=== PATIENT | female | born 1955 | race Asian ===

== ENCOUNTER 2017-01-30 07:05 | Emergency (ER) | payer SELFPAY ==
[~2017-01-30] VITALS: Ht 167.6 cm; Wt 99.5 kg
[~2017-01-30 07:05] MED LIST: AMLO5TAB66 PO; GLYB5TAB8 PO; METF500T4 PO
[2017-01-30] MEDS ORDERED: ATOR40TA28 PO (07:15)
[2017-01-30] MEDS ORDERED: BENA20 PO (07:15)
[2017-01-30] MEDS ORDERED: ASPI-556 PO (07:15)
[2017-01-30] MEDS ORDERED: GLIP5 PO (07:15)
[2017-01-30] MEDS ORDERED: METO50 PO (07:15)
[2017-01-30 07:41] LABS: GLUCOSE,POINT OF CARE 274 MG/DL (70-110)
[2017-01-30] MEDS ORDERED: SODIUM CHLORIDE 0.9% 1,000 ML IV ONE (08:00)
[2017-01-30] MEDS ORDERED: KETOROLAC TROMETHAMINE 30 MG/ML VIAL IVP ONE (08:00)
[2017-01-30 08:17] LABS: BASOPHILS # (AUTO) 0.09 K/uL (0.00-0.20); BASOPHILS % (AUTO) 1.2 % (0.0-2.0); EOSINOPHILS # (AUTO) 0.21 K/uL (0.00-0.70); EOSINOPHILS % (AUTO) 2.75 % (1.0-6.0); HEMATOCRIT 41.1 % (36-46); HEMOGLOBIN 14.2 g/dL (12.0-16.0); LYMPHOCYTES # (AUTO) 1.2 K/uL (1.0-4.8); MEAN CORPUSCULAR HEMOGLOBIN 29.1 pg (26.0-34.0); MEAN CORPUSCULAR HGB CONC 34.5 G/dL (31.0-37.0); MEAN CORPUSCULAR VOLUME 84 fL (80-100); MONOCYTES # (AUTO) 0.6 K/uL (0.1-1.0); MONOCYTES % (AUTO) 7.3 % (2.0-9.0); NEUTROPHILS # (AUTO) 5.5 K/uL (1.8-7.7); NEUTROPHILS % (AUTO) 72.8 % (40.0-70.0); PLATELET COUNT (AUTO) 245 K/uL (150-450); RED BLOOD CELL COUNT(AUTO) 4.87 MIL/uL (4.00-5.20); RED CELL DISTRIBUTION WIDTH 12.6 % (11.5-14.5); WHITE BLOOD COUNT (AUTO) 7.6 K/uL (4.5-11.0)
[2017-01-30 08:20] LABS: CALCIUM, TOTAL 9.8 mg/dL (8.8-10.5); CREATININE 1.16 mg/dL (0.60-1.30); POTASSIUM 4.7 mmol/L (3.5-5.1)
[2017-01-30 08:27] LABS: ALBUMIN 3.1 g/dL (3.4-5.0); BILIRUBIN,TOTAL 0.5 mg/dL (0.1-1.0); TOTAL PROTEIN, SERUM 7.3 g/dL (6.4-8.2)
[2017-01-30 08:38] LABS: APPEARANCE,URINE CLEAR (CLEAR); GLUCOSE, URINE (UA) >=1000 mg/dL (NEGATIVE); KETONES,URINE NEGATIVE (NEGATIVE); LEUKOCYTE ESTERASE ,URINE NEGATIVE (NEGATIVE); OCCULT BLOOD,URINE MODERATE (NEGATIVE); PH,URINE 6.5 (5.0-8.0); PROTEIN,URINE SEE CONFIRM (NEGATIVE)
[2017-01-30 08:47] LABS: ADD UA MICROSCOPIC YES
[2017-01-30 08:52] LABS: SQUAMOUS EPITHELIAL CELL,UR Few /LPF (None Seen); SULFOSALICYLIC ACID,URINE 3+ (Negative); WBC,URINE 0-2 /HPF (0-5)
[2017-01-30 09:23] VITALS: BP 152/99
[2017-01-30] MEDS ORDERED: ACET-2247 PO (17:51)
[2017-01-30] MEDS ORDERED: DSS100 PO (17:51)
== END 2017-01-30 09:25 | disposition home or self-care (01) ==
LOC: EMS 07:07
DX: K59.00 Constipation, unspecified (principal); R74.8 Abnormal levels of other serum enzymes; E11.9 Type 2 diabetes mellitus without complications; I10 Essential (primary) hypertension; E78.00 Pure hypercholesterolemia, unspecified; J45.909 Unspecified asthma, uncomplicated; Z79.82 Long term (current) use of aspirin
CPT/HCPCS: 36415; 71010; 74176; 80053; 81001; 81002; 82948; 82962; 83690; 84484; 85025; 93005; 96361; 96374; 99285; J1885

== ENCOUNTER 2017-01-30 17:43 | Emergency (ER) | payer MEDICAID ==
[~2017-01-30] VITALS: Ht 167.6 cm; Wt 99.5 kg
[~2017-01-30 17:43] MED LIST changes: +ASPI-556 PO; +ATOR40TA28 PO; +BENA20 PO; +GLIP5 PO; +METO50 PO
[2017-01-30] MEDS ORDERED: DSS100 PO (17:51)
[2017-01-30] MEDS ORDERED: ACET-2247 PO (17:51)
[2017-01-30 17:57] LABS: GLUCOSE,POINT OF CARE 223 MG/DL (70-110)
[2017-01-30 19:43] VITALS: BP 148/74
== END 2017-01-30 20:23 | disposition home or self-care (01) ==
LOC: EMS 17:46
DX: B02.9 Zoster without complications (principal); R10.12 Left upper quadrant pain; J45.909 Unspecified asthma, uncomplicated; E78.00 Pure hypercholesterolemia, unspecified; E11.9 Type 2 diabetes mellitus without complications; I10 Essential (primary) hypertension; Z86.73 Personal history of transient ischemic attack (TIA), and cerebral infarction without residual deficits; Z79.82 Long term (current) use of aspirin
CPT/HCPCS: 82962; 99282; 99283

== ENCOUNTER 2017-04-23 15:56 | Emergency (ER) | payer MEDICAID ==
[~2017-04-23] VITALS: Ht 162.6 cm; Wt 97.3 kg
[~2017-04-23 15:56] MED LIST changes: +ACET-2247 PO; +DSS100 PO; -GLYB5TAB8 PO
[2017-04-23 16:12] LABS: GLUCOSE,POINT OF CARE 172 MG/DL (70-110)
[2017-04-23] MEDS ORDERED: METF10002 PO (16:35)
[2017-04-23] MEDS ORDERED: LISI-661 PO (16:35)
[2017-04-23] MEDS ORDERED: ACYC800T PO (16:35)
[2017-04-23] MEDS ORDERED: HYDR-3965 PO (16:35)
[2017-04-23] MEDS ORDERED: CIPR-278 PO (16:35)
[2017-04-23 17:37] LABS: BASOPHILS % (AUTO) 0.4 % (0.0-2.0); EOSINOPHILS % (AUTO) 4.6 % (1.0-6.0); HEMATOCRIT 39.1 % (36-46); HEMOGLOBIN 13.4 g/dL (12.0-16.0); LYMPHOCYTES # (AUTO) 2.4 K/uL (1.0-4.8); LYMPHOCYTES % (AUTO) 26.5 % (22.0-44.0); MEAN CORPUSCULAR HEMOGLOBIN 29.7 pg (26.0-34.0); MEAN CORPUSCULAR HGB CONC 34.3 G/dL (31.0-37.0); MEAN CORPUSCULAR VOLUME 87 fL (80-100); MONOCYTES # (AUTO) 0.6 K/uL (0.1-1.0); MONOCYTES % (AUTO) 6.6 % (2.0-9.0); NEUTROPHILS # (AUTO) 5.7 K/uL (1.8-7.7); NEUTROPHILS % (AUTO) 61.9 % (40.0-70.0); PLATELET COUNT (AUTO) 258 K/uL (150-450); RED BLOOD CELL COUNT(AUTO) 4.51 MIL/uL (4.00-5.20); WHITE BLOOD COUNT (AUTO) 9.2 K/uL (4.5-11.0)
[2017-04-23 17:52] LABS: CALCIUM, TOTAL 9.1 mg/dL (8.8-10.5); CREATININE 1.25 mg/dL (0.60-1.30); POTASSIUM 4.9 mmol/L (3.5-5.1)
[2017-04-23 17:56] LABS: ALBUMIN 2.9 g/dL (3.4-5.0); BILIRUBIN,TOTAL 0.2 mg/dL (0.1-1.0)
[2017-04-23] MEDS ORDERED: ALBUTEROL SULFATE 2.5 MG/0.5 ML NEB SOLUTION NEB ONE (18:00)
[2017-04-23] MEDS ORDERED: IPRATROPIUM BROMIDE 0.5 MG/2.5 ML NEB SOLUTION NEB ONE (18:00)
[2017-04-23] MEDS ORDERED: 0.9% SODIUM CHLORIDE 5 ML NEB SOLUTION NEB ONE (18:00)
[2017-04-23 19:24] VITALS: BP 143/80
[2017-04-23] MEDS ORDERED: ALBUTEROL SULFATE HFA 90 MCG/PUFF 8 GM INHALER IH ONE (19:30)
== END 2017-04-23 19:32 | disposition home or self-care (01) ==
LOC: EMS 16:03
DX: J45.901 Unspecified asthma with (acute) exacerbation (principal); R10.84 Generalized abdominal pain; E78.00 Pure hypercholesterolemia, unspecified; I10 Essential (primary) hypertension; E11.9 Type 2 diabetes mellitus without complications
CPT/HCPCS: 36415; 71010; 80053; 82962; 83880; 84484; 85025; 93005; 94640; 99285; J7613; J3535

== ENCOUNTER 2017-05-13 16:59 | Emergency (ER) | payer MEDICAID ==
[~2017-05-13] VITALS: Ht 167.6 cm; Wt 108.0 kg
[~2017-05-13 16:59] MED LIST changes: +ACYC800T PO; +CIPR-278 PO; +HYDR-4061 PO; +LISI-661 PO; +METF10002 PO; -METF500T4 PO
[2017-05-13 17:37] LABS: GLUCOSE,POINT OF CARE 201 MG/DL (70-110)
[2017-05-13] MEDS ORDERED: ASPIRIN 81 MG CHEWABLE TABLET PO ONE (18:45)
[2017-05-13 19:15] LABS: BASOPHILS % (AUTO) 0.3 % (0.0-2.0); HEMOGLOBIN 13.5 g/dL (12.0-16.0); LYMPHOCYTES # (AUTO) 2.3 K/uL (1.0-4.8); LYMPHOCYTES % (AUTO) 25.9 % (22.0-44.0); MEAN CORPUSCULAR HEMOGLOBIN 30.3 pg (26.0-34.0); MEAN CORPUSCULAR HGB CONC 34.5 G/dL (31.0-37.0); MEAN CORPUSCULAR VOLUME 88 fL (80-100); MONOCYTES # (AUTO) 0.6 K/uL (0.1-1.0); MONOCYTES % (AUTO) 7.2 % (2.0-9.0); NEUTROPHILS # (AUTO) 5.5 K/uL (1.8-7.7); NEUTROPHILS % (AUTO) 62.6 % (40.0-70.0); PLATELET COUNT (AUTO) 250 K/uL (150-450); RED BLOOD CELL COUNT(AUTO) 4.44 MIL/uL (4.00-5.20); RED CELL DISTRIBUTION WIDTH 13.2 % (11.5-14.5); WHITE BLOOD COUNT (AUTO) 8.8 K/uL (4.5-11.0)
[2017-05-13 19:25] LABS: ANION GAP 11 mmol/L (8-16); CALCIUM, TOTAL 9.5 mg/dL (8.8-10.5); CARBON DIOXIDE 23 mmol/L (22-29); CHLORIDE 109 mmol/L (98-107); GLOMERULAR FILTR. RATE CALC 46 mL/min (>60); POTASSIUM 4.4 mmol/L (3.5-5.1); SODIUM SERUM 143 mmol/L (136-145); UREA NITROGEN, BLOOD 26 mg/dL (7-18)
[2017-05-13] MEDS ORDERED: ALBUTEROL SULFATE 5 MG/ML 20 ML NEB SOLN [BULK] NEB ONE (19:30)
[2017-05-13] MEDS ORDERED: PredniSONE 20 MG TABLET PO ONE (19:30)
[2017-05-13] MEDS ORDERED: IPRATROPIUM BROMIDE 0.5 MG/2.5 ML NEB SOLUTION NEB ONE (19:30)
[2017-05-13] MEDS ORDERED: LORazepam 2 MG TABLET PO ONE (19:30)
[2017-05-13 19:33] LABS: B-TYPE NATRIURETIC PEPTIDE 69 pg/mL (0-100)
[2017-05-13 19:51] LABS: ALANINE AMINOTRANSFERASE 19 U/L (12-78); ALBUMIN 3.2 g/dL (3.4-5.0); ASPARTATE AMINOTRANSFERASE 12 U/L (15-37); BILIRUBIN,TOTAL 0.2 mg/dL (0.1-1.0); CREATINE KINASE MB 2.4 ng/mL (0-5); CREATINE KINASE, TOTAL 94 U/L (26-192); TOTAL PROTEIN, SERUM 7.3 g/dL (6.4-8.2)
[2017-05-13 20:10] LABS: APPEARANCE,URINE CLEAR (CLEAR); GLUCOSE, URINE (UA) 100 mg/dL (NEGATIVE); KETONES,URINE NEGATIVE (NEGATIVE); LEUKOCYTE ESTERASE ,URINE TRACE (NEGATIVE); OCCULT BLOOD,URINE SMALL (NEGATIVE); PROTEIN,URINE SEE CONFIRM (NEGATIVE)
[2017-05-13 20:13] LABS: ADD UA MICROSCOPIC YES
[2017-05-13 20:32] LABS: SULFOSALICYLIC ACID,URINE 3+ (Negative)
[2017-05-13 20:33] LABS: SQUAMOUS EPITHELIAL CELL,UR Few /LPF (None Seen)
[2017-05-13 20:35] LABS: COARSE GRANULAR CASTS,URINE 0-2 /LPF (None Seen); FINE GRANULAR CASTS,URINE 0-2 /LPF (None Seen)
[2017-05-13 20:36] LABS: HYALINE CASTS, URINE 0-2 /LPF (None Seen)
[2017-05-13 21:44] VITALS: BP 126/81
[2017-05-13] MEDS ORDERED: ALBUTEROL SULFATE HFA 90 MCG/PUFF 8 GM INHALER IH ONE (21:45)
== END 2017-05-13 21:56 | disposition home or self-care (01) ==
LOC: EMS 17:02
DX: F41.9 Anxiety disorder, unspecified (principal); J45.909 Unspecified asthma, uncomplicated; N39.0 Urinary tract infection, site not specified; E86.0 Dehydration; E11.9 Type 2 diabetes mellitus without complications; I10 Essential (primary) hypertension; E78.00 Pure hypercholesterolemia, unspecified
CPT/HCPCS: 36415; 71010; 80053; 81001; 82550; 82553; 82962; 83880; 84484; 85025; 87086; 93005; 94640; 99285; J7512; J7611; J3535

== ENCOUNTER 2017-05-31 01:36 | Inpatient (IN) | payer MEDICAID ==
[~2017-05-31] VITALS: Ht 167.6 cm; Wt 106.2 kg
[2017-05-31 01:52] LABS: GLUCOSE,POINT OF CARE 241 MG/DL (70-110)
[2017-05-31 02:15] LABS: BASOPHILS % (AUTO) 0.4 % (0.0-2.0); EOSINOPHILS % (AUTO) 4.3 % (1.0-6.0); HEMATOCRIT 37.4 % (36-46); HEMOGLOBIN 12.7 g/dL (12.0-16.0); LYMPHOCYTES # (AUTO) 3.6 K/uL (1.0-4.8); LYMPHOCYTES % (AUTO) 37.6 % (22.0-44.0); MEAN CORPUSCULAR HEMOGLOBIN 29.9 pg (26.0-34.0); MEAN CORPUSCULAR HGB CONC 34.1 G/dL (31.0-37.0); MEAN CORPUSCULAR VOLUME 88 fL (80-100); MONOCYTES # (AUTO) 0.7 K/uL (0.1-1.0); MONOCYTES % (AUTO) 7.2 % (2.0-9.0); NEUTROPHILS # (AUTO) 4.9 K/uL (1.8-7.7); NEUTROPHILS % (AUTO) 50.5 % (40.0-70.0); PLATELET COUNT (AUTO) 246 K/uL (150-450); RED BLOOD CELL COUNT(AUTO) 4.26 MIL/uL (4.00-5.20); RED CELL DISTRIBUTION WIDTH 13.2 % (11.5-14.5); WHITE BLOOD COUNT (AUTO) 9.6 K/uL (4.5-11.0)
[2017-05-31] MEDS ORDERED: MethylPREDNISolone SOD SUCC 125 MG/2 ML VIAL IVP ONE (02:15)
[2017-05-31 02:24] LABS: ANION GAP 9 mmol/L (8-16); CALCIUM, TOTAL 9.5 mg/dL (8.8-10.5); CARBON DIOXIDE 28 mmol/L (22-29); CHLORIDE 103 mmol/L (98-107); CREATININE 1.69 mg/dL (0.60-1.30); GLOMERULAR FILTR. RATE CALC 31 mL/min (>60); POTASSIUM 4.4 mmol/L (3.5-5.1); SODIUM SERUM 140 mmol/L (136-145); UREA NITROGEN, BLOOD 33 mg/dL (7-18)
[2017-05-31 02:26] LABS: PROTHROMBIN TIME 10.1 SEC (9.4-11.6)
[2017-05-31 02:33] LABS: B-TYPE NATRIURETIC PEPTIDE 34 pg/mL (0-100)
[2017-05-31] MEDS ORDERED: SODIUM CHLORIDE 0.9% 1,000 ML IV ONE (02:45)
[2017-05-31 02:49] LABS: ALANINE AMINOTRANSFERASE 21 U/L (12-78); ALBUMIN 3.2 g/dL (3.4-5.0); ASPARTATE AMINOTRANSFERASE 15 U/L (15-37); BILIRUBIN,TOTAL 0.2 mg/dL (0.1-1.0); CREATINE KINASE, TOTAL 112 U/L (26-192); TOTAL PROTEIN, SERUM 7.3 g/dL (6.4-8.2)
[2017-05-31 03:26] LABS: APPEARANCE,URINE CLEAR (CLEAR); GLUCOSE, URINE (UA) 500 mg/dL (NEGATIVE); KETONES,URINE NEGATIVE (NEGATIVE); LEUKOCYTE ESTERASE ,URINE TRACE (NEGATIVE); OCCULT BLOOD,URINE TRACE (NEGATIVE); PH,URINE 6.5 (5.0-8.0); PROTEIN,URINE SEE CONFIRM (NEGATIVE)
[2017-05-31 03:27] LABS: ADD UA MICROSCOPIC YES
[2017-05-31 03:28] LABS: SULFOSALICYLIC ACID,URINE 1+ (Negative)
[2017-05-31 03:34] LABS: SQUAMOUS EPITHELIAL CELL,UR Few /LPF (None Seen)
[2017-05-31 04:50] LABS: CALCIUM, TOTAL 8.7 mg/dL (8.8-10.5); CREATININE 1.62 mg/dL (0.60-1.30); POTASSIUM 4.5 mmol/L (3.5-5.1)
[2017-05-31] MEDS ORDERED: ONDANSETRON HCL 4 MG/2 ML VIAL IVP PRN ×2 (06:30→17:45)
[2017-05-31] MEDS ORDERED: ACETAMINOPHEN 325 MG TABLET PO PRN ×2 (06:30→17:45)
[2017-05-31] MEDS ORDERED: 0.9% SODIUM CHLORIDE 10 ML SYRINGE IVP PRN (06:30)
[2017-05-31] MEDS ORDERED: ALBUTEROL SULFATE 2.5 MG/0.5 ML NEB SOLUTION NEB PRN ×2 (06:30→17:45)
[2017-05-31 07:01] VITALS: BP 152/83
[2017-05-31] MEDS: IPRATROPIUM BROMIDE 0.5 MG/2.5 ML NEB SOLUTION NEB SCH ×2 (09:56→16:16)
[2017-05-31] MEDS: ALBUTEROL SULFATE 2.5 MG/0.5 ML NEB SOLUTION NEB SCH ×2 (09:56→16:16)
[2017-05-31] MEDS ORDERED: INFLUENZA VIRUS VACCINE QVS 2017-18 (3YR+)/PF 60 MCG/0.5 ML SYRINGE IM ONE (10:45)
[2017-05-31] MEDS ORDERED: PNEUMOCOCCAL VACCINE POLYVALENT 0.5 ML VIAL [PPSV23] IM ONE (10:45)
[2017-05-31 11:43] VITALS: BP 139/63
[2017-05-31 16:00] VITALS: BP 161/80
[2017-05-31] MEDS ORDERED: MAGNESIUM HYDROXIDE SUSPENSION 30 ML UDCUP PO PRN (17:45)
[2017-05-31] MEDS ORDERED: HYDROCODONE/ACETAMINOPHEN 5-325 MG TABLET PO PRN (17:45)
[2017-05-31] MEDS ORDERED: ZOLPIDEM TARTRATE 5 MG TABLET PO PRN (17:45)
[2017-05-31] MEDS ORDERED: MORPHINE SULFATE 2 MG/ML SYRINGE IVP PRN (17:45)
[2017-05-31] MEDS ORDERED: BISACODYL 10 MG RECTAL RECTAL SUPPOSITORY PR PRN (17:45)
[2017-05-31] MEDS ORDERED: IPRATROPIUM BROMIDE 0.5 MG/2.5 ML NEB SOLUTION NEB PRN (17:45)
[2017-05-31] MEDS: DOCUSATE SODIUM 100 MG CAPSULE PO SCH (19:41)
[2017-05-31 19:49] VITALS: BP 152/84
[2017-05-31 23:47] VITALS: BP 138/82
[2017-06-01] MEDS ORDERED: HEPARIN SODIUM,PORCINE 5,000 UNITS/ML VIAL SQ SCH
[2017-06-01] MEDS ORDERED: ALBU8HFA IH (00:31)
[2017-06-01 05:15] VITALS: BP 150/80
[2017-06-01 07:00] LABS: CREATININE 1.29 mg/dL (0.60-1.30); POTASSIUM 4.2 mmol/L (3.5-5.1)
[2017-06-01 07:01] LABS: ALBUMIN 3.2 g/dL (3.4-5.0); BILIRUBIN,TOTAL 0.4 mg/dL (0.1-1.0); CALCIUM, TOTAL 9.6 mg/dL (8.8-10.5); TOTAL PROTEIN, SERUM 7.4 g/dL (6.4-8.2)
[2017-06-01 07:02] LABS: BASOPHILS # (AUTO) 0.03 K/uL (0.00-0.20); BASOPHILS % (AUTO) 0.2 % (0.0-2.0); EOSINOPHILS # (AUTO) 0.02 K/uL (0.00-0.70); EOSINOPHILS % (AUTO) 0.14 % (1.0-6.0); HEMATOCRIT 38.2 % (36-46); HEMOGLOBIN 12.9 g/dL (12.0-16.0); LYMPHOCYTES # (AUTO) 1.3 K/uL (1.0-4.8); LYMPHOCYTES % (AUTO) 10.6 % (22.0-44.0); MEAN CORPUSCULAR HEMOGLOBIN 29.8 pg (26.0-34.0); MEAN CORPUSCULAR HGB CONC 33.7 G/dL (31.0-37.0); MEAN CORPUSCULAR VOLUME 89 fL (80-100); MONOCYTES # (AUTO) 0.7 K/uL (0.1-1.0); MONOCYTES % (AUTO) 5.4 % (2.0-9.0); NEUTROPHILS # (AUTO) 10.4 K/uL (1.8-7.7); NEUTROPHILS % (AUTO) 83.6 % (40.0-70.0); PLATELET COUNT (AUTO) 242 K/uL (150-450); RED BLOOD CELL COUNT(AUTO) 4.32 MIL/uL (4.00-5.20); RED CELL DISTRIBUTION WIDTH 13.5 % (11.5-14.5); WHITE BLOOD COUNT (AUTO) 12.4 K/uL (4.5-11.0)
[2017-06-01 07:34] VITALS: BP 155/60
[2017-06-01] MEDS ORDERED: MetFORMIN HCL 500 MG TABLET PO SCH (08:00)
[2017-06-01] MEDS: DOCUSATE SODIUM 100 MG CAPSULE PO SCH (08:49)
[2017-06-01] MEDS ORDERED: AmLODIPine BESYLATE 5 MG TABLET PO SCH (09:00)
[2017-06-01] MEDS ORDERED: PANTOPRAZOLE SODIUM 40 MG/VIAL IVP SCH (09:00)
[2017-06-01] MEDS ORDERED: LISINOPRIL 10 MG TABLET PO SCH (09:00)
== END 2017-06-01 11:31 | disposition home or self-care (01) | DRG 469 ==
LOC: EMS 01:37 → 4E 06:35
PROVIDERS: ADMIT Hospitalist; ATTEND Hospitalist
DX: N17.9 Acute kidney failure, unspecified (principal); E44.1 Mild protein-calorie malnutrition; I10 Essential (primary) hypertension; J45.901 Unspecified asthma with (acute) exacerbation; K59.00 Constipation, unspecified; E11.9 Type 2 diabetes mellitus without complications; E78.00 Pure hypercholesterolemia, unspecified; Z86.73 Personal history of transient ischemic attack (TIA), and cerebral infarction without residual deficits
CPT/HCPCS: 74022; 82962; 90471; 93005; 94640; 96361; 96374; 99285; C9113; J1644; J2930; J7030

== ENCOUNTER 2017-07-07 17:09 | Emergency (ER) | payer MEDICAID ==
[~2017-07-07] VITALS: Ht 162.6 cm; Wt 99.5 kg
[~2017-07-07 17:09] MED LIST changes: -ACET-2247 PO; -ACYC800T PO; +ALBU8HFA IH; -ASPI-556 PO; -ATOR40TA28 PO; -BENA20 PO; -CIPR-278 PO; -DSS100 PO; -GLIP5 PO; -HYDR-4061 PO; -METO50 PO
[2017-07-07 17:27] LABS: GLUCOSE,POINT OF CARE 249 MG/DL (70-110)
[2017-07-07 17:42] LABS: BASOPHILS % (AUTO) 0.2 % (0.0-2.0); EOSINOPHILS % (AUTO) 2.9 % (1.0-6.0); HEMATOCRIT 39.3 % (36-46); HEMOGLOBIN 13.7 g/dL (12.0-16.0); LYMPHOCYTES % (AUTO) 30.6 % (22.0-44.0); MEAN CORPUSCULAR HEMOGLOBIN 30.3 pg (26.0-34.0); MEAN CORPUSCULAR HGB CONC 34.9 G/dL (31.0-37.0); MEAN CORPUSCULAR VOLUME 87 fL (80-100); MONOCYTES # (AUTO) 0.6 K/uL (0.1-1.0); MONOCYTES % (AUTO) 6.5 % (2.0-9.0); NEUTROPHILS # (AUTO) 5.9 K/uL (1.8-7.7); NEUTROPHILS % (AUTO) 59.8 % (40.0-70.0); PLATELET COUNT (AUTO) 251 K/uL (150-450); RED BLOOD CELL COUNT(AUTO) 4.53 MIL/uL (4.00-5.20); RED CELL DISTRIBUTION WIDTH 12.8 % (11.5-14.5); WHITE BLOOD COUNT (AUTO) 9.9 K/uL (4.5-11.0)
[2017-07-07 17:55] LABS: PROTHROMBIN TIME 10.3 SEC (9.4-11.6)
[2017-07-07 18:04] LABS: B-TYPE NATRIURETIC PEPTIDE 75 pg/mL (0-100)
[2017-07-07 18:08] LABS: ANION GAP 9 mmol/L (8-16); CALCIUM, TOTAL 9.3 mg/dL (8.8-10.5); CARBON DIOXIDE 23 mmol/L (22-29); CHLORIDE 104 mmol/L (98-107); CREATININE 1.37 mg/dL (0.60-1.30); GLOMERULAR FILTR. RATE CALC 39 mL/min (>60); POTASSIUM 3.5 mmol/L (3.5-5.1); SODIUM SERUM 136 mmol/L (136-145); UREA NITROGEN, BLOOD 34 mg/dL (7-18)
[2017-07-07] MEDS ORDERED: MethylPREDNISolone SOD SUCC 125 MG/2 ML VIAL IVP ONE (18:15)
[2017-07-07] MEDS ORDERED: ALBUTEROL SULFATE 2.5 MG/0.5 ML NEB SOLUTION NEB ONE (18:15)
[2017-07-07] MEDS ORDERED: 0.9% SODIUM CHLORIDE 15 ML NEB SOLUTION NEB ONE (18:21)
[2017-07-07 18:33] LABS: ALANINE AMINOTRANSFERASE 21 U/L (12-78); ALBUMIN 3.1 g/dL (3.4-5.0); ASPARTATE AMINOTRANSFERASE 15 U/L (15-37); BILIRUBIN,TOTAL 0.3 mg/dL (0.1-1.0); CREATINE KINASE MB 3.6 ng/mL (0-5); CREATINE KINASE, TOTAL 124 U/L (26-192); TOTAL PROTEIN, SERUM 7.1 g/dL (6.4-8.2)
[2017-07-07 19:11] LABS: APPEARANCE,URINE CLOUDY (CLEAR); GLUCOSE, URINE (UA) 500 mg/dL (NEGATIVE); KETONES,URINE NEGATIVE (NEGATIVE); LEUKOCYTE ESTERASE ,URINE NEGATIVE (NEGATIVE); OCCULT BLOOD,URINE SMALL (NEGATIVE); PROTEIN,URINE SEE CONFIRM (NEGATIVE)
[2017-07-07 19:13] LABS: ADD UA MICROSCOPIC YES
[2017-07-07 19:20] LABS: SQUAMOUS EPITHELIAL CELL,UR Few /LPF (None Seen); SULFOSALICYLIC ACID,URINE 3+ (Negative)
[2017-07-07 20:32] VITALS: BP 132/77
== END 2017-07-07 21:00 | disposition home or self-care (01) ==
LOC: EMS 17:11
DX: J45.901 Unspecified asthma with (acute) exacerbation (principal); N39.0 Urinary tract infection, site not specified; E11.9 Type 2 diabetes mellitus without complications; I10 Essential (primary) hypertension; E78.00 Pure hypercholesterolemia, unspecified
CPT/HCPCS: 36415; 71010; 80053; 81001; 82550; 82553; 82962; 83880; 84484; 85025; 85610; 85730; 87077; 87086; 93005; 94640; 96374; 99285; J2930; J7613

== ENCOUNTER 2017-08-07 08:16 | Emergency (ER) | payer SELFPAY ==
[~2017-08-07] VITALS: Ht 167.6 cm; Wt 99.5 kg
[2017-08-07 08:37] LABS: GLUCOSE,POINT OF CARE 240 MG/DL (70-110)
[2017-08-07] MEDS ORDERED: ACETAMINOPHEN 500 MG TABLET PO ONE (09:00)
[2017-08-07 10:40] VITALS: BP 150/86
[2017-08-07] MEDS ORDERED: ALBUTEROL SULFATE HFA 90 MCG/PUFF 8 GM INHALER IH ONE (12:00)
== END 2017-08-07 12:10 | disposition home or self-care (01) ==
LOC: EMS 08:16
DX: J45.909 Unspecified asthma, uncomplicated (principal); M54.9 Dorsalgia, unspecified; G89.29 Other chronic pain; I10 Essential (primary) hypertension; E78.00 Pure hypercholesterolemia, unspecified; E11.9 Type 2 diabetes mellitus without complications
CPT/HCPCS: 82962; 94640; 99283; J3535

== ENCOUNTER 2017-10-14 18:40 | Emergency (ER) | payer SELFPAY ==
[~2017-10-14] VITALS: Ht 167.6 cm; Wt 99.5 kg
[2017-10-14 18:54] LABS: GLUCOSE,POINT OF CARE 270 MG/DL (70-110)
[2017-10-14] MEDS ORDERED: ALBU8.5H8 IH (19:05)
[2017-10-14] MEDS ORDERED: BECL8.7A7 IH (19:05)
[2017-10-14] MEDS ORDERED: IPRATROPIUM BROMIDE 0.5 MG/2.5 ML NEB SOLUTION NEB ONE (21:30)
[2017-10-14] MEDS ORDERED: ALBUTEROL SULFATE HFA 90 MCG/PUFF 8 GM INHALER IH ONE (21:30)
[2017-10-14] MEDS ORDERED: BECLOMETHASONE DIPR 80 MCG/PUFF 8.7 GM INHALER IH ONE (21:30)
[2017-10-14] MEDS ORDERED: ALBUTEROL SULFATE 5 MG/ML 20 ML NEB SOLN [BULK] NEB ONE (21:30)
[2017-10-14 22:15] VITALS: BP 142/88
== END 2017-10-14 23:09 | disposition home or self-care (01) ==
LOC: EMS 18:50
DX: J45.909 Unspecified asthma, uncomplicated (principal); E11.9 Type 2 diabetes mellitus without complications; E78.00 Pure hypercholesterolemia, unspecified; I10 Essential (primary) hypertension
CPT/HCPCS: 71045; 82962; 94640; 99283; J7611; J3535

== ENCOUNTER 2018-01-23 00:42 | Emergency (ER) | payer MEDICAID ==
[~2018-01-23] VITALS: Ht 167.6 cm; Wt 104.7 kg
[~2018-01-23 00:42] MED LIST changes: +ALBU8.5H8 IH; +BECL8.7A7 IH; -METF10002 PO; +METF10004 PO
[2018-01-23 01:07] LABS: GLUCOSE,POINT OF CARE 281 MG/DL (70-110)
[2018-01-23 02:38] LABS: BASOPHILS % (AUTO) 0.5 % (0.0-2.0); EOSINOPHILS % (AUTO) 3.4 % (1.0-6.0); HEMATOCRIT 38.7 % (36-46); HEMOGLOBIN 13.4 g/dL (12.0-16.0); LYMPHOCYTES # (AUTO) 2.3 K/uL (1.0-4.8); LYMPHOCYTES % (AUTO) 26.5 % (22.0-44.0); MEAN CORPUSCULAR HEMOGLOBIN 29.1 pg (26.0-34.0); MEAN CORPUSCULAR HGB CONC 34.5 G/dL (31.0-37.0); MEAN CORPUSCULAR VOLUME 85 fL (80-100); MONOCYTES # (AUTO) 0.7 K/uL (0.1-1.0); MONOCYTES % (AUTO) 8.2 % (2.0-9.0); NEUTROPHILS # (AUTO) 5.4 K/uL (1.8-7.7); NEUTROPHILS % (AUTO) 61.4 % (40.0-70.0); PLATELET COUNT (AUTO) 215 K/uL (150-450); RED BLOOD CELL COUNT(AUTO) 4.58 MIL/uL (4.00-5.20); RED CELL DISTRIBUTION WIDTH 13.1 % (11.5-14.5)
[2018-01-23 02:47] LABS: CALCIUM, TOTAL 8.7 mg/dL (8.8-10.5); CREATININE 1.42 mg/dL (0.60-1.30); POTASSIUM 4.5 mmol/L (3.5-5.1)
[2018-01-23 02:53] LABS: ALBUMIN 2.6 g/dL (3.4-5.0); BILIRUBIN,TOTAL 0.2 mg/dL (0.1-1.0); TOTAL PROTEIN, SERUM 6.8 g/dL (6.4-8.2)
[2018-01-23 03:17] VITALS: BP 142/79
== END 2018-01-23 04:07 | disposition home or self-care (01) ==
LOC: EMS 00:43
DX: R06.02 Shortness of breath (principal); R05 Cough; R51 Headache; J45.909 Unspecified asthma, uncomplicated; E11.9 Type 2 diabetes mellitus without complications; E78.00 Pure hypercholesterolemia, unspecified; I10 Essential (primary) hypertension; Z86.73 Personal history of transient ischemic attack (TIA), and cerebral infarction without residual deficits
CPT/HCPCS: 93005; 99285

== ENCOUNTER 2018-06-21 03:31 | Emergency (ER) | payer SELFPAY ==
[~2018-06-21] VITALS: Ht 167.6 cm; Wt 99.5 kg
[~2018-06-21 03:31] MED LIST changes: +METF-446 PO; -METF10004 PO
[2018-06-21 03:43] LABS: GLUCOSE,POINT OF CARE 396 MG/DL (70-110)
[2018-06-21] MEDS ORDERED: ASPIRIN 81 MG CHEWABLE TABLET PO ONE (03:45)
[2018-06-21] MEDS ORDERED: INSULIN REGULAR, HUMAN 100 UNITS/ML IVP ONE ×2 (03:45→08:15)
[2018-06-21] MEDS ORDERED: ALBUTEROL SULFATE 2.5 MG/0.5 ML NEB SOLUTION NEB ONE (03:45)
[2018-06-21] MEDS ORDERED: IPRATROPIUM BROMIDE 0.5 MG/2.5 ML NEB SOLUTION NEB ONE (03:45)
[2018-06-21 04:51] LABS: BASOPHILS % (AUTO) 0.5 % (0.0-2.0); EOSINOPHILS % (AUTO) 3.4 % (1.0-6.0); HEMATOCRIT 39.8 % (36-46); HEMOGLOBIN 13.5 g/dL (12.0-16.0); LYMPHOCYTES # (AUTO) 1.8 K/uL (1.0-4.8); LYMPHOCYTES % (AUTO) 19.1 % (22.0-44.0); MEAN CORPUSCULAR HEMOGLOBIN 28.7 pg (26.0-34.0); MEAN CORPUSCULAR HGB CONC 33.9 G/dL (31.0-37.0); MEAN CORPUSCULAR VOLUME 85 fL (80-100); MONOCYTES # (AUTO) 0.6 K/uL (0.1-1.0); MONOCYTES % (AUTO) 6.3 % (2.0-9.0); NEUTROPHILS # (AUTO) 6.6 K/uL (1.8-7.7); NEUTROPHILS % (AUTO) 70.7 % (40.0-70.0); PLATELET COUNT (AUTO) 239 K/uL (150-450); RED CELL DISTRIBUTION WIDTH 13.3 % (11.5-14.5)
[2018-06-21 04:59] LABS: CALCIUM, TOTAL 9.1 mg/dL (8.8-10.5); CREATININE 1.82 mg/dL (0.60-1.30); POTASSIUM 4.3 mmol/L (3.5-5.1)
[2018-06-21 05:02] LABS: INR 0.9 (0.9-1.1); PROTHROMBIN TIME 9.9 SEC (9.4-11.6)
[2018-06-21] MEDS ORDERED: SODIUM CHLORIDE 0.9% 500 ML IV ONE ×2 (05:15→09:00)
[2018-06-21 05:25] LABS: ALBUMIN 2.7 g/dL (3.4-5.0); BILIRUBIN,TOTAL 0.2 mg/dL (0.1-1.0); TOTAL PROTEIN, SERUM 7.4 g/dL (6.4-8.2)
[2018-06-21 05:40] LABS: INFLUENZA TYPE A NEGATIVE FOR TYPE A (NEGATIVE); INFLUENZA TYPE B NEGATIVE FOR TYPE B (NEGATIVE)
[2018-06-21 06:09] LABS: APPEARANCE,URINE CLOUDY (CLEAR); BILIRUBIN,URINE NEGATIVE (NEGATIVE); GLUCOSE, URINE (UA) >=1000 mg/dL (NEGATIVE); KETONES,URINE NEGATIVE (NEGATIVE); LEUKOCYTE ESTERASE ,URINE NEGATIVE (NEGATIVE); NITRATE,URINE NEGATIVE (NEGATIVE); OCCULT BLOOD,URINE MODERATE (NEGATIVE); PROTEIN,URINE SEE CONFIRM (NEGATIVE); UROBILINOGEN,URINE 0.2 mg/dL (<=1.0)
[2018-06-21 06:18] LABS: GLUCOSE,POINT OF CARE 302 MG/DL (70-110)
[2018-06-21 06:29] LABS: SULFOSALICYLIC ACID,URINE 4+ (Negative)
[2018-06-21 06:31] LABS: BACTERIA,URINE Many /HPF (None Seen); SQUAMOUS EPITHELIAL CELL,UR Many /LPF (None Seen); WBC,URINE 51-100 /HPF (0-5)
[2018-06-21 07:53] LABS: GLUCOSE,POINT OF CARE 326 MG/DL (70-110)
[2018-06-21] MEDS ORDERED: BENZOCAINE/MENTHOL LOZENGE PO ONE (09:00)
[2018-06-21 09:08] LABS: GLUCOSE,POINT OF CARE 278 MG/DL (70-110)
[2018-06-21 09:37] VITALS: BP 145/77
== END 2018-06-21 09:41 | disposition home or self-care (01) ==
LOC: EMS 03:31
DX: J44.1 Chronic obstructive pulmonary disease with (acute) exacerbation (principal); E11.65 Type 2 diabetes mellitus with hyperglycemia; R74.8 Abnormal levels of other serum enzymes; E66.01 Morbid (severe) obesity due to excess calories; R10.9 Unspecified abdominal pain; E78.00 Pure hypercholesterolemia, unspecified; I10 Essential (primary) hypertension; Z86.73 Personal history of transient ischemic attack (TIA), and cerebral infarction without residual deficits; Z79.84 Long term (current) use of oral hypoglycemic drugs; Z79.899 Other long term (current) drug therapy
CPT/HCPCS: 36415; 74022; 80053; 81001; 82550; 82948; 82962; 83690; 83880; 84484; 85025; 85610; 85730; 87040; 87077; 87086; 87186; 87804; 93005; 94640; 96361; 96374; 96376; 99285; J1815; J7030; J7040

== ENCOUNTER 2018-10-10 17:01 | Emergency (ER) | payer MEDICAID ==
[~2018-10-10] VITALS: Ht 162.6 cm; Wt 99.5 kg
[2018-10-10 17:46] LABS: BASOPHILS % (AUTO) 1.2 % (0.0-2.0); EOSINOPHILS % (AUTO) 3.5 % (1.0-6.0); LYMPHOCYTES # (AUTO) 2.1 K/uL (1.0-4.8); LYMPHOCYTES % (AUTO) 25.1 % (22.0-44.0); MEAN CORPUSCULAR HEMOGLOBIN 28.5 pg (26.0-34.0); MEAN CORPUSCULAR HGB CONC 34.1 G/dL (31.0-37.0); MEAN CORPUSCULAR VOLUME 83 fL (80-100); MONOCYTES # (AUTO) 0.4 K/uL (0.1-1.0); MONOCYTES % (AUTO) 5.1 % (2.0-9.0); NEUTROPHILS # (AUTO) 5.4 K/uL (1.8-7.7); NEUTROPHILS % (AUTO) 65.1 % (40.0-70.0); PLATELET COUNT (AUTO) 304 K/uL (150-450); RED BLOOD CELL COUNT(AUTO) 4.56 MIL/uL (4.00-5.20); RED CELL DISTRIBUTION WIDTH 13.4 % (11.5-14.5)
[2018-10-10 17:54] LABS: CALCIUM, TOTAL 8.6 mg/dL (8.8-10.5); CREATININE 1.87 mg/dL (0.60-1.30); POTASSIUM 4.5 mmol/L (3.5-5.1)
[2018-10-10 18:01] LABS: ALBUMIN 2.2 g/dL (3.4-5.0); BILIRUBIN,TOTAL 0.2 mg/dL (0.1-1.0); TOTAL PROTEIN, SERUM 6.5 g/dL (6.4-8.2)
[2018-10-10] MEDS ORDERED: SODIUM CHLORIDE 0.9% 2,000 ML IV ONE (21:30)
[2018-10-10] MEDS ORDERED: LISINOPRIL 10 MG TABLET PO ONE (21:30)
[2018-10-10] MEDS ORDERED: AmLODIPine BESYLATE 5 MG TABLET PO ONE (22:15)
[2018-10-11 00:10] LABS: APPEARANCE,URINE CLOUDY (CLEAR); BILIRUBIN,URINE NEGATIVE (NEGATIVE); GLUCOSE, URINE (UA) 250 mg/dL (NEGATIVE); KETONES,URINE NEGATIVE (NEGATIVE); LEUKOCYTE ESTERASE ,URINE SMALL (NEGATIVE); NITRATE,URINE NEGATIVE (NEGATIVE); OCCULT BLOOD,URINE SMALL (NEGATIVE); PH,URINE 5.5 (5.0-8.0); PROTEIN,URINE SEE CONFIRM (NEGATIVE); UROBILINOGEN,URINE 0.2 mg/dL (<=1.0)
[2018-10-11 00:17] LABS: SULFOSALICYLIC ACID,URINE 4+ (Negative)
[2018-10-11 00:33] LABS: BACTERIA,URINE Many /HPF (None Seen); SQUAMOUS EPITHELIAL CELL,UR Many /LPF (None Seen); WBC,URINE 51-100 /HPF (0-5)
[2018-10-11 01:29] VITALS: BP 175/90
== END 2018-10-11 01:41 | disposition home or self-care (01) ==
LOC: EMS 17:02
DX: R42 Dizziness and giddiness (principal); I10 Essential (primary) hypertension; E11.9 Type 2 diabetes mellitus without complications; E78.00 Pure hypercholesterolemia, unspecified; J45.909 Unspecified asthma, uncomplicated; Z79.84 Long term (current) use of oral hypoglycemic drugs
CPT/HCPCS: 36415; 71045; 80053; 81001; 84484; 85025; 87086; 93005; 96360; 99284; J7030

== ENCOUNTER 2019-10-08 15:58 | Inpatient (IN) | payer MEDICAID ==
[~2019-10-08] VITALS: Ht 167.6 cm; Wt 103.5 kg
[~2019-10-08 15:58] MED LIST changes: +INSLAN SQ; +MECL-160 PO; -METF-446 PO; +PROM25 PO
[2019-10-08 16:24] LABS: GLUCOSE,POINT OF CARE 205 MG/DL (70-110)
[2019-10-08] MEDS ORDERED: HYDR-1475 PO (16:43)
[2019-10-08] MEDS ORDERED: ATOR10TA84 PO (16:43)
[2019-10-08] MEDS ORDERED: IBUP-2071 PO (16:43)
[2019-10-08] MEDS ORDERED: LISI-662 PO (16:43)
[2019-10-08] MEDS ORDERED: BISA-151 PO (16:43)
[2019-10-08] MEDS ORDERED: FURO20 PO (16:43)
[2019-10-08] MEDS ORDERED: METF-960 PO (16:43)
[2019-10-08] MEDS ORDERED: INSLAN SQ ×3 (16:46)
[2019-10-08 17:58] LABS: BASOPHILS % (AUTO) 0.7 % (0.0-2.0); EOSINOPHILS % (AUTO) 2.9 % (1.0-6.0); HEMATOCRIT 38.2 % (36-46); HEMOGLOBIN 12.8 g/dL (12.0-16.0); LYMPHOCYTES # (AUTO) 2.1 K/uL (1.0-4.8); LYMPHOCYTES % (AUTO) 19.9 % (22.0-44.0); MEAN CORPUSCULAR HEMOGLOBIN 28.7 pg (26.0-34.0); MEAN CORPUSCULAR HGB CONC 33.4 G/dL (31.0-37.0); MEAN CORPUSCULAR VOLUME 86 fL (80-100); MONOCYTES # (AUTO) 0.9 K/uL (0.1-1.0); MONOCYTES % (AUTO) 8.1 % (2.0-9.0); NEUTROPHILS # (AUTO) 7.3 K/uL (1.8-7.7); NEUTROPHILS % (AUTO) 68.4 % (40.0-70.0); PLATELET COUNT (AUTO) 291 K/uL (150-450); RED BLOOD CELL COUNT(AUTO) 4.45 MIL/uL (4.00-5.20); RED CELL DISTRIBUTION WIDTH 13.7 % (11.5-14.5)
[2019-10-08] MEDS ORDERED: ONDANSETRON HCL 4 MG/2 ML VIAL IVP ONE (18:00)
[2019-10-08 18:18] LABS: CALCIUM, TOTAL 9.2 mg/dL (8.8-10.5); CREATININE 3.49 mg/dL (0.60-1.30); POTASSIUM 5.8 mmol/L (3.5-5.1)
[2019-10-08 18:22] LABS: LACTIC ACID 0.6 mmol/L (0.4-2.0)
[2019-10-08 18:24] LABS: ALBUMIN 2.7 g/dL (3.4-5.0); BILIRUBIN,TOTAL 0.2 mg/dL (0.1-1.0); TOTAL PROTEIN, SERUM 7.3 g/dL (6.4-8.2)
[2019-10-08] MEDS ORDERED: 0.9% SODIUM CHLORIDE 10 ML SYRINGE IVP PRN ×2 (19:45→21:45)
[2019-10-08] MEDS ORDERED: SODIUM POLYSTYRENE SULFONATE 15 GM/60 ML SUSPENSION BOTTLE PO ONE (19:45)
[2019-10-08] MEDS ORDERED: SODIUM CHLORIDE 0.9% 1,000 ML IV ONE ×2 (19:45→23:00)
[2019-10-08] MEDS ORDERED: ONDANSETRON HCL 4 MG/2 ML VIAL IVP PRN ×2 (19:45→21:45)
[2019-10-08] MEDS ORDERED: ACETAMINOPHEN 325 MG TABLET PO PRN ×2 (19:45→21:45)
[2019-10-08 21:43] VITALS: BP 155/85
[2019-10-08] MEDS ORDERED: ZOLPIDEM TARTRATE 5 MG TABLET PO PRN (21:45)
[2019-10-08] MEDS ORDERED: DEXTROSE 50%-WATER 25 GM/50 ML SYRINGE IVP PRN (21:45)
[2019-10-08 23:46] VITALS: BP 149/86
[2019-10-08] MEDS ORDERED: SODIUM CHLORIDE 0.9% 500 ML IV ONE (23:46)
[2019-10-09 00:14] LABS: GLUCOMETER DEV NAME(LOC) 6N.2; GLUCOSE,POINT OF CARE 200 MG/DL (70-110)
[2019-10-09] MEDS ORDERED: INFLUENZA VIRUS VACCINE QVS 2019-20 (3YR+)/PF 60 MCG/0.5 ML SYRINGE IM ONE (06:30)
[2019-10-09 06:42] VITALS: BP 153/84
[2019-10-09 07:10] LABS: GLUCOMETER DEV NAME(LOC) 6N.2; GLUCOSE,POINT OF CARE 147 MG/DL (70-110)
[2019-10-09 07:42] LABS: BASOPHILS % (AUTO) 0.6 % (0.0-2.0); EOSINOPHILS % (AUTO) 4.1 % (1.0-6.0); HEMATOCRIT 36.4 % (36-46); LYMPHOCYTES # (AUTO) 2.3 K/uL (1.0-4.8); MEAN CORPUSCULAR HEMOGLOBIN 28.3 pg (26.0-34.0); MEAN CORPUSCULAR VOLUME 86 fL (80-100); MONOCYTES # (AUTO) 0.8 K/uL (0.1-1.0); MONOCYTES % (AUTO) 8.9 % (2.0-9.0); NEUTROPHILS # (AUTO) 5.7 K/uL (1.8-7.7); NEUTROPHILS % (AUTO) 61.4 % (40.0-70.0); PLATELET COUNT (AUTO) 265 K/uL (150-450); RED BLOOD CELL COUNT(AUTO) 4.25 MIL/uL (4.00-5.20); RED CELL DISTRIBUTION WIDTH 13.4 % (11.5-14.5)
[2019-10-09 08:10] LABS: ALBUMIN 2.4 g/dL (3.4-5.0); BILIRUBIN,TOTAL 0.2 mg/dL (0.1-1.0); CREATININE 3.52 mg/dL (0.60-1.30); MAGNESIUM 1.5 mg/dL (1.80-2.40); TOTAL PROTEIN, SERUM 6.5 g/dL (6.4-8.2)
[2019-10-09] MEDS: MetFORMIN HCL 500 MG TABLET PO SCH ×2 (08:51→18:25)
[2019-10-09] MEDS: PANTOPRAZOLE SODIUM 40 MG DR TABLET PO SCH (08:51)
[2019-10-09] MEDS: HEPARIN SODIUM,PORCINE 5,000 UNITS/ML VIAL SQ SCH ×4 (08:52→23:13)
[2019-10-09 08:54] VITALS: BP 140/64
[2019-10-09] MEDS: INSULIN GLARGINE,HUM.REC.ANLOG 100 UNITS/ML SQ SCH (08:57)
[2019-10-09] MEDS ORDERED: AmLODIPine BESYLATE 5 MG TABLET PO SCH (09:00)
[2019-10-09] MEDS ORDERED: FUROSEMIDE 20 MG TABLET PO SCH (09:00)
[2019-10-09] MEDS ORDERED: HYDROCHLOROTHIAZIDE 25 MG TABLET PO SCH (09:00)
[2019-10-09 11:33] VITALS: BP 169/89
[2019-10-09 16:08] VITALS: BP 177/90
[2019-10-09 18:06] LABS: GLUCOMETER DEV NAME(LOC) 6N.2; GLUCOSE,POINT OF CARE 208 MG/DL (70-110)
[2019-10-09] MEDS: INSULIN LISPRO 100 UNITS/ML SQ PRN ×2 (18:31→21:07)
[2019-10-09] MEDS ORDERED: AmLODIPine BESYLATE 5 MG TABLET PO ONE (20:15)
[2019-10-09 20:19] VITALS: BP 187/94
[2019-10-09] MEDS ORDERED: MAGNESIUM OXIDE 400 MG TABLET PO ONE (20:45)
[2019-10-09] MEDS: CloNIDine HCL 0.1 MG TABLET PO PRN (21:00)
[2019-10-09] MEDS: ATORVASTATIN CALCIUM 10 MG TABLET PO SCH (21:00)
[2019-10-09 22:47] LABS: GLUCOMETER DEV NAME(LOC) 4E.2; GLUCOSE,POINT OF CARE 211 MG/DL (70-110)
[2019-10-10] VITALS (7 sets, daily range): BP systolic 122–160; BP diastolic 55–87
[2019-10-10 00:05] LABS: APPEARANCE,URINE CLEAR (CLEAR); BILIRUBIN,URINE NEGATIVE (NEGATIVE); GLUCOSE, URINE (UA) 500 mg/dL (NEGATIVE); KETONES,URINE NEGATIVE (NEGATIVE); LEUKOCYTE ESTERASE ,URINE NEGATIVE (NEGATIVE); NITRATE,URINE NEGATIVE (NEGATIVE); OCCULT BLOOD,URINE TRACE (NEGATIVE); PROTEIN,URINE SEE CONFIRM (NEGATIVE); UROBILINOGEN,URINE 0.2 mg/dL (<=1.0)
[2019-10-10 00:11] LABS: CREATININE,URINE RANDOM 52.8 mg/dL (30.0-125.0); SODIUM,URINE RANDOM 86 mmol/l (20-110)
[2019-10-10 00:17] LABS: SULFOSALICYLIC ACID,URINE 4+ (Negative)
[2019-10-10 00:30] LABS: BACTERIA,URINE Few /HPF (None Seen); SQUAMOUS EPITHELIAL CELL,UR Few /LPF (None Seen); YEAST,URINE Rare /HPF (None Seen)
[2019-10-10 00:55] LABS: PROTEIN,URINE RANDOM 658 mg/dL (0-11.9)
[2019-10-10 07:35] LABS: GLUCOMETER DEV NAME(LOC) 6N.1; GLUCOSE,POINT OF CARE 158 MG/DL (70-110)
[2019-10-10] MEDS: HEPARIN SODIUM,PORCINE 5,000 UNITS/ML VIAL SQ SCH ×3 (08:00→20:48)
[2019-10-10] MEDS: MetFORMIN HCL 500 MG TABLET PO SCH (08:00)
[2019-10-10] MEDS: PANTOPRAZOLE SODIUM 40 MG DR TABLET PO SCH (08:02)
[2019-10-10] MEDS: AmLODIPine BESYLATE 10 MG TABLET PO SCH (08:02)
[2019-10-10] MEDS: INSULIN GLARGINE,HUM.REC.ANLOG 100 UNITS/ML SQ SCH (08:11)
[2019-10-10 12:18] LABS: GLUCOMETER DEV NAME(LOC) 4E.2; GLUCOSE,POINT OF CARE 189 MG/DL (70-110)
[2019-10-10 12:33] LABS: CALCIUM, TOTAL 8.7 mg/dL (8.8-10.5); CHOL/HDL RATIO 8.1 (3.9-5.7); CREATININE 3.41 mg/dL (0.60-1.30); POTASSIUM 4.7 mmol/L (3.5-5.1)
[2019-10-10 17:56] LABS: GLUCOMETER DEV NAME(LOC) 4E.2; GLUCOSE,POINT OF CARE 174 MG/DL (70-110)
[2019-10-10] MEDS: INSULIN LISPRO 100 UNITS/ML SQ PRN ×2 (18:01→20:48)
[2019-10-10] MEDS: ATORVASTATIN CALCIUM 10 MG TABLET PO SCH (20:47)
[2019-10-10] MEDS: CloNIDine HCL 0.1 MG TABLET PO PRN (20:47)
[2019-10-10 22:08] LABS: GLUCOMETER DEV NAME(LOC) 6N.1; GLUCOSE,POINT OF CARE 172 MG/DL (70-110)
[2019-10-10 22:15] LABS: GLUCOMETER DEV NAME(LOC) 4E.2; GLUCOSE,POINT OF CARE 117 MG/DL (70-110)
[2019-10-11 04:48] VITALS: BP 129/55
[2019-10-11] MEDS: PANTOPRAZOLE SODIUM 40 MG DR TABLET PO SCH (08:11)
[2019-10-11] MEDS: AmLODIPine BESYLATE 10 MG TABLET PO SCH (08:11)
[2019-10-11] MEDS: HEPARIN SODIUM,PORCINE 5,000 UNITS/ML VIAL SQ SCH (08:11)
[2019-10-11] MEDS: INSULIN GLARGINE,HUM.REC.ANLOG 100 UNITS/ML SQ SCH (08:15)
[2019-10-11 08:44] VITALS: BP 136/58
[2019-10-11 11:37] LABS: GLUCOMETER DEV NAME(LOC) 6N.1; GLUCOSE,POINT OF CARE 202 MG/DL (70-110)
[2019-10-11 11:37] LABS: GLUCOMETER DEV NAME(LOC) 4E.2; GLUCOSE,POINT OF CARE 200 MG/DL (70-110)
[2019-10-11 12:00] VITALS: BP 127/56
[2019-10-11] MEDS ORDERED: DAPA10TA PO (13:45)
== END 2019-10-11 16:49 | disposition home or self-care (01) | DRG 425 ==
LOC: EMS 15:59 → 6N 20:00 → 4E 10-09 18:06
PROVIDERS: ADMIT Internal Medicine; ATTEND Internal Medicine
DX: E87.5 Hyperkalemia (principal); N17.9 Acute kidney failure, unspecified; E11.22 Type 2 diabetes mellitus with diabetic chronic kidney disease; E11.319 Type 2 diabetes mellitus with unspecified diabetic retinopathy without macular edema; I48.91 Unspecified atrial fibrillation; J45.909 Unspecified asthma, uncomplicated; E78.00 Pure hypercholesterolemia, unspecified; K59.00 Constipation, unspecified; I12.9 Hypertensive chronic kidney disease with stage 1 through stage 4 chronic kidney disease, or unspecified chronic kidney disease; N18.9 Chronic kidney disease, unspecified; E78.5 Hyperlipidemia, unspecified; H54.8 Legal blindness, as defined in USA; E83.42 Hypomagnesemia; Z83.3 Family history of diabetes mellitus; Z82.5 Family history of asthma and other chronic lower respiratory diseases; Z82.49 Family history of ischemic heart disease and other diseases of the circulatory system; Z86.73 Personal history of transient ischemic attack (TIA), and cerebral infarction without residual deficits; Z28.21 Immunization not carried out because of patient refusal
CPT/HCPCS: 70450; 76770; 82570; 83605; 83735; 83970; 84156; 84300; 84540; 86256; 93005; 96361; 96374; G0378; J1644; J1815; J2405; J7030; J7040

== ENCOUNTER 2022-11-21 00:26 | Inpatient (IN) | payer MEDICAID ==
[2022-11-21] VITALS (12 sets, daily range): BP systolic 101–123; BP diastolic 57–80
[~2022-11-21] VITALS: Ht 152.4 cm; Wt 94.5 kg
[~2022-11-21 00:26] MED LIST changes: -ALBU8.5H8 IH; -ALBU8HFA IH; +ATOR10TA PO; -BECL8.7A7 IH; +BISA-151 PO; +DAPA10TA PO; +FURO20 PO; +HYDR25TA2 PO; +IBUP-1493 PO; -LISI-661 PO; +LISI-894 PO; -MECL-160 PO; +METF-1211 PO; -PROM25 PO
[2022-11-21 00:44] LABS: BASOPHILS % (AUTO) 0.6 % (0.0-2.0); EOSINOPHILS % (AUTO) 1.7 % (1.0-6.0); HEMATOCRIT 29.3 % (36-46); HEMOGLOBIN 9.7 g/dL (12.0-16.0); LYMPHOCYTES # (AUTO) 1.6 K/uL (1.0-4.8); LYMPHOCYTES % (AUTO) 14.7 % (22.0-44.0); MEAN CORPUSCULAR HEMOGLOBIN 32.5 pg (26.0-34.0); MEAN CORPUSCULAR HGB CONC 33.3 G/dL (31.0-37.0); MEAN CORPUSCULAR VOLUME 98 fL (80-100); MONOCYTES % (AUTO) 9.2 % (2.0-9.0); NEUTROPHILS # (AUTO) 7.8 K/uL (1.8-7.7); NEUTROPHILS % (AUTO) 73.8 % (40.0-70.0); PLATELET COUNT (AUTO) 157 K/uL (150-450); RED CELL DISTRIBUTION WIDTH 17.3 % (11.5-14.5)
[2022-11-21] MEDS ORDERED: AMIODARONE HCL 50 MG/ML 3 ML VIAL IVP ONE (00:45)
[2022-11-21 00:57] LABS: INR 1.3 (0.9-1.1)
[2022-11-21] MEDS ORDERED: INSULIN REGULAR, HUMAN 100 UNITS/ML IVP ONE (01:00)
[2022-11-21] MEDS ORDERED: CALCIUM GLUCONATE 0.465 MEQ/ML 10 ML VIAL ONE (01:00)
[2022-11-21] MEDS ORDERED: DEXTROSE 50%-WATER 25 GM/50 ML SYRINGE IVP ONE ×2 (01:00)
[2022-11-21] MEDS ORDERED: CALCIUM GLUCONATE 100 MG/ML 10 ML IVP ONE (01:00)
[2022-11-21] MEDS ORDERED: SODIUM BICARBONATE [ADULT] 8.4% 50 MEQ/50 ML SYRINGE IVP ONE ×2 (01:00)
[2022-11-21] MEDS ORDERED: INSULIN REGULAR, HUMAN 100 UNITS/ML ONE (01:02)
[2022-11-21 01:03] LABS: ALBUMIN 3.3 g/dL (3.4-5.0); BILIRUBIN,TOTAL 1.8 mg/dL (0.1-1.0); CALCIUM, TOTAL 9.1 mg/dL (8.8-10.5); CREATININE 8.81 mg/dL (0.60-1.30); TOTAL PROTEIN, SERUM 7.9 g/dL (6.4-8.2)
[2022-11-21 01:06] LABS: GLUCOSE,POINT OF CARE 102 MG/DL (70-110)
[2022-11-21 01:06] LABS: POTASSIUM 7.2 mmol/L (3.5-5.1)
[2022-11-21] MEDS ORDERED: SODIUM POLYSTYRENE SULFONATE 15 GM/60 ML SUSPENSION BOTTLE PO ONE (01:15)
[2022-11-21] MEDS ORDERED: ALBUTEROL SULFATE 2.5 MG/0.5 ML NEB SOLUTION NEB PRN (02:00)
[2022-11-21] MEDS ORDERED: IPRATROPIUM BROMIDE 0.5 MG/2.5 ML NEB SOLUTION NEB PRN (02:00)
[2022-11-21] MEDS ORDERED: ONDANSETRON HCL 4 MG/2 ML VIAL IVP PRN (02:00)
[2022-11-21 02:30] LABS: COVID AG,FIA SOURCE NASAL SWAB
[2022-11-21 02:48] LABS: APPEARANCE,URINE HAZY (CLEAR); BILIRUBIN,URINE NEGATIVE (NEGATIVE); GLUCOSE, URINE (UA) 150-200 mg/dL (NEGATIVE); KETONES,URINE NEGATIVE (NEGATIVE); LEUKOCYTE ESTERASE ,URINE LARGE (NEGATIVE); NITRATE,URINE NEGATIVE (NEGATIVE); OCCULT BLOOD,URINE LARGE (NEGATIVE); PH,URINE 7.5 (5.0-8.0); PROTEIN,URINE 100-200,SEE CONFIRM mg/dL (NEGATIVE); SPECIFIC GRAVITIY, URINE 1.011 (1.003-1.030); UROBILINOGEN,URINE <=1.0 mg/dL (<=1.0)
[2022-11-21 02:54] LABS: SULFOSALICYLIC ACID,URINE 1+ (Negative)
[2022-11-21 02:55] LABS: BACTERIA,URINE Moderate /HPF (None Seen); SQUAMOUS EPITHELIAL CELL,UR None Seen /LPF (None Seen); WBC,URINE 26-50 /HPF (0-5)
[2022-11-21 04:28] LABS: CALCIUM, TOTAL 9.2 mg/dL (8.8-10.5); CREATININE 8.69 mg/dL (0.60-1.30)
[2022-11-21 04:30] LABS: POTASSIUM 6.9 mmol/L (3.5-5.1)
[2022-11-21] MEDS ORDERED: DEXTROSE 50%-WATER 25 GM/50 ML SYRINGE IVP PRN (05:00)
[2022-11-21] MEDS ORDERED: INSULIN LISPRO 100 UNITS/ML SQ PRN (05:00)
[2022-11-21] MEDS ORDERED: CALCIUM CHLORIDE 100 MG/ML 10 ML SYRINGE IVP ONE ×2 (06:30)
[2022-11-21] MEDS ORDERED: SODIUM CHLORIDE 0.9% 250 ML IV ONE (06:40)
[2022-11-21] MEDS: CefTRIAXone 1 GM/DEXTROSE 50 ML IV SCH (06:42)
[2022-11-21 07:55] LABS: BASOPHILS % (AUTO) 0.5 % (0.0-2.0); EOSINOPHILS % (AUTO) 0.2 % (1.0-6.0); HEMATOCRIT 28.5 % (36-46); HEMOGLOBIN 9.7 g/dL (12.0-16.0); LYMPHOCYTES # (AUTO) 0.5 K/uL (1.0-4.8); LYMPHOCYTES % (AUTO) 5.1 % (22.0-44.0); MEAN CORPUSCULAR HGB CONC 34.2 G/dL (31.0-37.0); MEAN CORPUSCULAR VOLUME 96 fL (80-100); MONOCYTES # (AUTO) 0.9 K/uL (0.1-1.0); NEUTROPHILS # (AUTO) 9.1 K/uL (1.8-7.7); PLATELET COUNT (AUTO) 138 K/uL (150-450); RED BLOOD CELL COUNT(AUTO) 2.96 MIL/uL (4.00-5.20); RED CELL DISTRIBUTION WIDTH 17.1 % (11.5-14.5)
[2022-11-21 08:04] LABS: NEUTROPHILS % (AUTO) 86.2 % (40.0-70.0)
[2022-11-21 08:06] LABS: ALBUMIN 3.3 g/dL (3.4-5.0); BILIRUBIN,TOTAL 1.9 mg/dL (0.1-1.0); CALCIUM, TOTAL 9.1 mg/dL (8.8-10.5); CREATININE 5.48 mg/dL (0.60-1.30); POTASSIUM 4.1 mmol/L (3.5-5.1); TOTAL PROTEIN, SERUM 7.8 g/dL (6.4-8.2)
[2022-11-21] MEDS: HYDROCHLOROTHIAZIDE 25 MG TABLET PO SCH (09:00)
[2022-11-21] MEDS: AmLODIPine BESYLATE 5 MG TABLET PO SCH (09:30)
[2022-11-21] MEDS: DOCUSATE SODIUM 100 MG CAPSULE PO SCH ×2 (09:30→20:46)
[2022-11-21 11:05] LABS: CALCIUM, TOTAL 9.1 mg/dL (8.8-10.5); CREATININE 5.25 mg/dL (0.60-1.30); POTASSIUM 4.3 mmol/L (3.5-5.1)
[2022-11-21 12:02] LABS: GLUCOSE,POINT OF CARE 70 MG/DL (70-110)
[2022-11-21 12:02] LABS: GLUCOSE,POINT OF CARE 76 MG/DL (70-110)
[2022-11-21] MEDS ORDERED: ATORVASTATIN CALCIUM 10 MG TABLET PO SCH (21:00)
[2022-11-21 22:36] LABS: GLUCOMETER DEV NAME(LOC) 5N.1C; GLUCOSE,POINT OF CARE 99 MG/DL (70-110)
[2022-11-21 22:37] LABS: GLUCOMETER DEV NAME(LOC) 5S.1B; GLUCOSE,POINT OF CARE 93 MG/DL (70-110)
[2022-11-22 00:22] VITALS: BP 139/87
[2022-11-22] MEDS ORDERED: SODIUM CHLORIDE 0.9% 500 ML IV ONE (04:31)
[2022-11-22] MEDS: CefTRIAXone 1 GM/DEXTROSE 50 ML IV SCH (04:33)
[2022-11-22 04:42] VITALS: BP 132/83
[2022-11-22 07:55] VITALS: BP 130/74
[2022-11-22 07:56] LABS: GLUCOMETER DEV NAME(LOC) 5S.1B; GLUCOSE,POINT OF CARE 76 MG/DL (70-110)
[2022-11-22] MEDS: AmLODIPine BESYLATE 5 MG TABLET PO SCH (08:22)
[2022-11-22] MEDS: HYDROCHLOROTHIAZIDE 25 MG TABLET PO SCH (08:22)
[2022-11-22] MEDS: DOCUSATE SODIUM 100 MG CAPSULE PO SCH (08:22)
[2022-11-22 11:08] LABS: BASOPHILS % (AUTO) 0.6 % (0.0-2.0); EOSINOPHILS % (AUTO) 3.2 % (1.0-6.0); HEMATOCRIT 30.1 % (36-46); LYMPHOCYTES # (AUTO) 0.6 K/uL (1.0-4.8); LYMPHOCYTES % (AUTO) 8.1 % (22.0-44.0); MEAN CORPUSCULAR HEMOGLOBIN 32.3 pg (26.0-34.0); MEAN CORPUSCULAR HGB CONC 33.2 G/dL (31.0-37.0); MEAN CORPUSCULAR VOLUME 98 fL (80-100); MONOCYTES # (AUTO) 0.7 K/uL (0.1-1.0); MONOCYTES % (AUTO) 9.3 % (2.0-9.0); NEUTROPHILS # (AUTO) 6.2 K/uL (1.8-7.7); NEUTROPHILS % (AUTO) 78.8 % (40.0-70.0); PLATELET COUNT (AUTO) 161 K/uL (150-450); RED BLOOD CELL COUNT(AUTO) 3.08 MIL/uL (4.00-5.20); RED CELL DISTRIBUTION WIDTH 17.1 % (11.5-14.5)
[2022-11-22 11:35] VITALS: BP 128/88
[2022-11-22 11:44] LABS: ALBUMIN 2.9 g/dL (3.4-5.0); CREATININE 6.45 mg/dL (0.60-1.30); POTASSIUM 4.5 mmol/L (3.5-5.1); TOTAL PROTEIN, SERUM 7.1 g/dL (6.4-8.2)
[2022-11-22] MEDS ORDERED: SEVELAMER CARBONATE 800 MG TABLET PO SCH (12:00)
[2022-11-22 12:12] LABS: BILIRUBIN,TOTAL 1.5 mg/dL (0.1-1.0)
[2022-11-22 12:46] LABS: GLUCOMETER DEV NAME(LOC) 5N.1C; GLUCOSE,POINT OF CARE 90 MG/DL (70-110)
[2022-11-22] MEDS ORDERED: AMIODARONE HCL 200 MG TABLET PO SCH (14:15)
[2022-11-22] MEDS: APIXABAN 2.5 MG TABLET PO SCH ×2 (14:15→14:58)
[2022-11-23] MEDS ORDERED: EPOETIN ALFA 10,000 UNITS/ML 2 ML VIAL SQ SCH (09:00)
== END 2022-11-22 15:54 | disposition left against medical advice (07) | DRG 194 ==
LOC: EMS 00:27 → ICU 04:24 → 5S 17:15
PROVIDERS: ADMIT Internal Medicine; ATTEND Internal Medicine
PROC: 5A1D70Z Performance of Urinary Filtration, Intermittent, Less than 6 Hours Per Day (ICD-10-PCS; principal; 2022-11-21)
DX: I13.2 Hypertensive heart and chronic kidney disease with heart failure and with stage 5 chronic kidney disease, or end stage renal disease (principal); G92.8 Other toxic encephalopathy; N18.6 End stage renal disease; D63.1 Anemia in chronic kidney disease; I48.92 Unspecified atrial flutter; E11.22 Type 2 diabetes mellitus with diabetic chronic kidney disease; I47.1 Supraventricular tachycardia; Z20.822 Contact with and (suspected) exposure to COVID-19; N39.0 Urinary tract infection, site not specified; Z53.29 Procedure and treatment not carried out because of patient's decision for other reasons; J45.909 Unspecified asthma, uncomplicated; E78.00 Pure hypercholesterolemia, unspecified; R19.7 Diarrhea, unspecified; I45.10 Unspecified right bundle-branch block; I50.31 Acute diastolic (congestive) heart failure; E87.5 Hyperkalemia; I34.0 Nonrheumatic mitral (valve) insufficiency; Z99.2 Dependence on renal dialysis; Z86.73 Personal history of transient ischemic attack (TIA), and cerebral infarction without residual deficits; Z79.4 Long term (current) use of insulin; Z82.49 Family history of ischemic heart disease and other diseases of the circulatory system; Z82.5 Family history of asthma and other chronic lower respiratory diseases; Z83.3 Family history of diabetes mellitus; Z91.15 Patient's noncompliance with renal dialysis; Z79.899 Other long term (current) drug therapy
CPT/HCPCS: 71045; 74018; 80048; 80053; 81001; 81002; 82550; 82962; 83735; 83880; 84484; 85025; 85610; 85730; 87081; 87086; 87186; 87340; 90935; 93005; 93306; 99285; J0610; J0696; J1815; J3490; J7040; J7050; 36415-L1; 36415-TC

== ENCOUNTER 2022-12-25 17:48 | Inpatient (IN) | payer MEDICAID ==
[~2022-12-25] VITALS: Ht 157.5 cm; Wt 100.0 kg
[2022-12-25 18:39] LABS: BASOPHILS % (AUTO) 1.8 % (0.0-2.0); HEMATOCRIT 31.3 % (36-46); HEMOGLOBIN 10.3 g/dL (12.0-16.0); LYMPHOCYTES # (AUTO) 0.6 K/uL (1.0-4.8); LYMPHOCYTES % (AUTO) 4.5 % (22.0-44.0); MEAN CORPUSCULAR VOLUME 100 fL (80-100); MONOCYTES # (AUTO) 0.9 K/uL (0.1-1.0); MONOCYTES % (AUTO) 7.1 % (2.0-9.0); NEUTROPHILS % (AUTO) 84.6 % (40.0-70.0); PLATELET COUNT (AUTO) 146 K/uL (150-450); RED BLOOD CELL COUNT(AUTO) 3.12 MIL/uL (4.00-5.20); RED CELL DISTRIBUTION WIDTH 16.7 % (11.5-14.5)
[2022-12-25 18:46] LABS: ANION GAP 15 mmol/L (8-16); CALCIUM, TOTAL 9.2 mg/dL (8.8-10.5); CARBON DIOXIDE 25 mmol/L (22-29); CHLORIDE 93 mmol/L (98-107); CREATININE 6.74 mg/dL (0.60-1.30); GLOMERULAR FILTR. RATE CALC 6 mL/min (>60); GLUCOSE,RANDOM 124 mg/dL (70-110); POTASSIUM 5.3 mmol/L (3.5-5.1); SODIUM SERUM 133 mmol/L (136-145)
[2022-12-25 18:52] LABS: ALANINE AMINOTRANSFERASE 10 U/L (12-78); ALBUMIN 3.4 g/dL (3.4-5.0); ALKALINE PHOSPHATASE 185 U/L (46-116); ASPARTATE AMINOTRANSFERASE 23 U/L (15-37); BILIRUBIN,TOTAL 1.7 mg/dL (0.1-1.0); LIPASE 380 U/L (73-393); TOTAL PROTEIN, SERUM 8.2 g/dL (6.4-8.2)
[2022-12-25 18:57] LABS: COVID AG,FIA SOURCE NASOPHARYNGEAL
[2022-12-25 19:01] LABS: B-TYPE NATRIURETIC PEPTIDE 1730 pg/mL (0-100)
[2022-12-25 19:15] LABS: LACTIC ACID 7.5 mmol/L (0.4-2.0)
[2022-12-25] MEDS ORDERED: GENTAMICIN 120 MG/NACL ISO-OSM 100 ML IV ONE (19:15)
[2022-12-25] MEDS ORDERED: ACETAMINOPHEN 500 MG TABLET PO ONE (19:15)
[2022-12-25] MEDS ORDERED: VANCOMYCIN 1GM/WATER(PEG/NADA) 200 ML IV ONE (19:15)
[2022-12-25] MEDS ORDERED: SODIUM ZIRCONIUM CYCLOSILICATE 5 GM POWDER PACKET PO ONE (19:15)
[2022-12-25] MEDS ORDERED: CALCIUM GLUCONATE 0.465 MEQ/ML 10 ML VIAL ONE (19:22)
[2022-12-25] MEDS ORDERED: DILTIAZEM HCL 5 MG/ML 5 ML VIAL IVP ONE (19:30)
[2022-12-25] MEDS ORDERED: CALCIUM GLUCONATE 100 MG/ML 10 ML IVP ONE (19:30)
[2022-12-25] MEDS ORDERED: ONDANSETRON HCL 4 MG/2 ML VIAL IVP ONE (19:30)
[2022-12-25 20:37] LABS: APPEARANCE,URINE TURBID (CLEAR); BILIRUBIN,URINE NEGATIVE (NEGATIVE); GLUCOSE, URINE (UA) NEGATIVE (NEGATIVE); KETONES,URINE NEGATIVE (NEGATIVE); LEUKOCYTE ESTERASE ,URINE LARGE (NEGATIVE); NITRATE,URINE NEGATIVE (NEGATIVE); OCCULT BLOOD,URINE LARGE (NEGATIVE); PH,URINE 6.5 (5.0-8.0); PROTEIN,URINE 100-200,SEE CONFIRM mg/dL (NEGATIVE); SPECIFIC GRAVITIY, URINE 1.008 (1.003-1.030); UROBILINOGEN,URINE <=1.0 mg/dL (<=1.0)
[2022-12-25] MEDS ORDERED: BISACODYL 10 MG RECTAL RECTAL SUPPOSITORY PR PRN (20:45)
[2022-12-25] MEDS ORDERED: INSULIN LISPRO 100 UNITS/ML SQ PRN (20:45)
[2022-12-25 20:47] LABS: BACTERIA,URINE Many /HPF (None Seen); SQUAMOUS EPITHELIAL CELL,UR Few /LPF (None Seen); SULFOSALICYLIC ACID,URINE 3+ (Negative); WBC,URINE 51-100 /HPF (0-5)
[2022-12-25] MEDS ORDERED: PHENYLEPHRINE 200 MG/D5%-WATER 250 ML IV PRN (22:45)
[2022-12-25] MEDS ORDERED: SODIUM POLYSTYRENE SULFONATE 15 GM/60 ML SUSPENSION BOTTLE PO ONE (23:30)
[2022-12-25] MEDS: ETHYL ALCOHOL 62% ANTISEPTIC NASAL SANITIZER 0.6 ML AMPUL NASAL SCH (23:34)
[2022-12-25] MEDS: ATORVASTATIN CALCIUM 10 MG TABLET PO SCH (23:34)
[2022-12-25] MEDS: DOCUSATE SODIUM 100 MG CAPSULE PO SCH (23:34)
[2022-12-25] MEDS: ZOLPIDEM TARTRATE 5 MG TABLET PO PRN (23:51)
[2022-12-26] VITALS (17 sets, daily range): BP systolic 95–136; BP diastolic 54–88
[2022-12-26] MEDS ORDERED: HEPARIN SODIUM,PORCINE 5,000 UNITS/ML VIAL SQ SCH
[2022-12-26] MEDS ORDERED: SODIUM CHLORIDE 0.9% 250 ML IV ONE (00:43)
[2022-12-26] MEDS ORDERED: VANCOMYCIN HCL 1 GM in DEXTROSE 5%-WATER 250 ML IV PRN (04:30)
[2022-12-26 05:41] LABS: BASOPHILS % (AUTO) 0.3 % (0.0-2.0); EOSINOPHILS % (AUTO) 0.1 % (1.0-6.0); HEMATOCRIT 30.8 % (36-46); HEMOGLOBIN 10.1 g/dL (12.0-16.0); LYMPHOCYTES # (AUTO) 0.6 K/uL (1.0-4.8); LYMPHOCYTES % (AUTO) 2.8 % (22.0-44.0); MEAN CORPUSCULAR HEMOGLOBIN 33.1 pg (26.0-34.0); MEAN CORPUSCULAR HGB CONC 32.9 G/dL (31.0-37.0); MEAN CORPUSCULAR VOLUME 101 fL (80-100); MONOCYTES # (AUTO) 1.7 K/uL (0.1-1.0); MONOCYTES % (AUTO) 8.3 % (2.0-9.0); NEUTROPHILS # (AUTO) 18.5 K/uL (1.8-7.7); PLATELET COUNT (AUTO) 110 K/uL (150-450); RED BLOOD CELL COUNT(AUTO) 3.05 MIL/uL (4.00-5.20); RED CELL DISTRIBUTION WIDTH 16.7 % (11.5-14.5)
[2022-12-26 05:45] LABS: NEUTROPHILS % (AUTO) 88.5 % (40.0-70.0)
[2022-12-26 05:59] LABS: CREATININE 7.15 mg/dL (0.60-1.30); POTASSIUM 5.4 mmol/L (3.5-5.1)
[2022-12-26 07:52] LABS: GLUCOSE,POINT OF CARE 112 MG/DL (70-110)
[2022-12-26] MEDS ORDERED: HEPARIN SODIUM,PORCINE 5,000 UNITS/ML VIAL IVP ONE (09:00)
[2022-12-26] MEDS ORDERED: HEPARIN SODIUM,PORCINE 5,000 UNITS/ML VIAL IVP PRN (09:00)
[2022-12-26] MEDS: DOCUSATE SODIUM 100 MG CAPSULE PO SCH ×2 (10:07→21:02)
[2022-12-26] MEDS: ASPIRIN 81 MG DR TABLET PO SCH (10:07)
[2022-12-26] MEDS: ETHYL ALCOHOL 62% ANTISEPTIC NASAL SANITIZER 0.6 ML AMPUL NASAL SCH ×2 (10:07→21:01)
[2022-12-26] MEDS: PANTOPRAZOLE SODIUM 40 MG DR TABLET PO SCH (10:07)
[2022-12-26 11:05] LABS: BASOPHILS % (AUTO) 0.5 % (0.0-2.0); EOSINOPHILS % (AUTO) 0.2 % (1.0-6.0); HEMATOCRIT 30.1 % (36-46); HEMOGLOBIN 9.9 g/dL (12.0-16.0); LYMPHOCYTES # (AUTO) 0.6 K/uL (1.0-4.8); LYMPHOCYTES % (AUTO) 3.8 % (22.0-44.0); MEAN CORPUSCULAR HGB CONC 32.9 G/dL (31.0-37.0); MEAN CORPUSCULAR VOLUME 100 fL (80-100); MONOCYTES % (AUTO) 6.2 % (2.0-9.0); NEUTROPHILS # (AUTO) 14.9 K/uL (1.8-7.7); PLATELET COUNT (AUTO) 109 K/uL (150-450); RED CELL DISTRIBUTION WIDTH 16.6 % (11.5-14.5)
[2022-12-26 11:07] LABS: NEUTROPHILS % (AUTO) 89.3 % (40.0-70.0)
[2022-12-26 11:27] LABS: INR 1.4 (0.9-1.1); PROTHROMBIN TIME 14.8 SEC (9.4-11.6)
[2022-12-26] MEDS: HEPARIN SODIUM 25000 UNITS/D5W 250 ML IV PRN (12:32)
[2022-12-26 13:51] LABS: GLUCOSE,POINT OF CARE 82 MG/DL (70-110)
[2022-12-26 17:52] LABS: BASOPHILS % (AUTO) 0.4 % (0.0-2.0); EOSINOPHILS % (AUTO) 1.2 % (1.0-6.0); HEMATOCRIT 26.4 % (36-46); LYMPHOCYTES # (AUTO) 0.5 K/uL (1.0-4.8); LYMPHOCYTES % (AUTO) 4.9 % (22.0-44.0); MEAN CORPUSCULAR HEMOGLOBIN 32.2 pg (26.0-34.0); MEAN CORPUSCULAR HGB CONC 30.3 G/dL (31.0-37.0); MEAN CORPUSCULAR VOLUME 106 fL (80-100); MONOCYTES # (AUTO) 0.7 K/uL (0.1-1.0); MONOCYTES % (AUTO) 6.5 % (2.0-9.0); NEUTROPHILS # (AUTO) 9.6 K/uL (1.8-7.7); RED BLOOD CELL COUNT(AUTO) 2.49 MIL/uL (4.00-5.20); RED CELL DISTRIBUTION WIDTH 17.2 % (11.5-14.5)
[2022-12-26 17:58] LABS: PLATELET COUNT (AUTO) 107 K/uL (150-450)
[2022-12-26 18:16] LABS: GLUCOSE,POINT OF CARE 84 MG/DL (70-110)
[2022-12-26] MEDS: ATORVASTATIN CALCIUM 10 MG TABLET PO SCH (21:01)
[2022-12-26] MEDS: HYDROCODONE/ACETAMINOPHEN 5-325 MG TABLET PO PRN (23:10)
[2022-12-27] VITALS: BP 107/66
[2022-12-27 00:21] LABS: GLUCOSE,POINT OF CARE 85 MG/DL (70-110)
[2022-12-27 04:00] VITALS: BP 94/60
[2022-12-27 06:02] LABS: GLUCOSE,POINT OF CARE 102 MG/DL (70-110)
[2022-12-27 06:10] LABS: BASOPHILS % (AUTO) 0.6 % (0.0-2.0); HEMATOCRIT 27.4 % (36-46); HEMOGLOBIN 9.2 g/dL (12.0-16.0); LYMPHOCYTES # (AUTO) 0.7 K/uL (1.0-4.8); LYMPHOCYTES % (AUTO) 6.9 % (22.0-44.0); MEAN CORPUSCULAR HEMOGLOBIN 33.7 pg (26.0-34.0); MEAN CORPUSCULAR HGB CONC 33.8 G/dL (31.0-37.0); MEAN CORPUSCULAR VOLUME 100 fL (80-100); MONOCYTES # (AUTO) 0.9 K/uL (0.1-1.0); MONOCYTES % (AUTO) 8.8 % (2.0-9.0); NEUTROPHILS # (AUTO) 8.5 K/uL (1.8-7.7); NEUTROPHILS % (AUTO) 80.7 % (40.0-70.0); PLATELET COUNT (AUTO) 119 K/uL (150-450); RED BLOOD CELL COUNT(AUTO) 2.74 MIL/uL (4.00-5.20); RED CELL DISTRIBUTION WIDTH 16.9 % (11.5-14.5)
[2022-12-27 06:23] LABS: CALCIUM, TOTAL 8.8 mg/dL (8.8-10.5); CHOL/HDL RATIO 2.5 (3.9-5.7); CREATININE 5.77 mg/dL (0.60-1.30); POTASSIUM 4.2 mmol/L (3.5-5.1); VANCOMYCIN,RANDOM 7.3 mcg/mL (25.0-50.0)
[2022-12-27 06:34] LABS: LACTIC ACID 1.1 mmol/L (0.4-2.0)
[2022-12-27 08:00] VITALS: BP 111/78
[2022-12-27] MEDS ORDERED: VANCOMYCIN 1GM/WATER(PEG/NADA) 200 ML IV ONE (08:00)
[2022-12-27] MEDS: METOPROLOL TARTRATE 25 MG TABLET NG SCH ×2 (08:47→19:57)
[2022-12-27] MEDS: PANTOPRAZOLE SODIUM 40 MG DR TABLET PO SCH (08:47)
[2022-12-27] MEDS: ETHYL ALCOHOL 62% ANTISEPTIC NASAL SANITIZER 0.6 ML AMPUL NASAL SCH ×2 (08:47→19:57)
[2022-12-27] MEDS: DOCUSATE SODIUM 100 MG CAPSULE PO SCH ×2 (08:47→19:56)
[2022-12-27] MEDS: ASPIRIN 81 MG DR TABLET PO SCH (08:47)
[2022-12-27] MEDS ORDERED: METOPROLOL SUCCINATE 25 MG ER TABLET PO SCH (09:00)
[2022-12-27] MEDS ORDERED: METOPROLOL TARTRATE 25 MG TABLET NG SCH (09:00)
[2022-12-27 12:00] VITALS: BP 143/85
[2022-12-27] MEDS: HEPARIN SODIUM 25000 UNITS/D5W 250 ML IV PRN (15:39)
[2022-12-27 16:00] VITALS: BP 99/72
[2022-12-27 18:36] LABS: GLUCOSE,POINT OF CARE 91 MG/DL (70-110)
[2022-12-27] MEDS: HYDROCODONE/ACETAMINOPHEN 5-325 MG TABLET PO PRN (19:56)
[2022-12-27] MEDS: ZOLPIDEM TARTRATE 5 MG TABLET PO PRN (19:57)
[2022-12-27] MEDS: ATORVASTATIN CALCIUM 10 MG TABLET PO SCH (19:57)
[2022-12-27 20:00] VITALS: BP 131/77
[2022-12-27 20:36] LABS: GLUCOSE,POINT OF CARE 92 MG/DL (70-110)
[2022-12-28] VITALS (14 sets, daily range): BP systolic 97–139; BP diastolic 31–93
[2022-12-28] MEDS ORDERED: DiphenhydrAMINE HCL 50 MG/ML VIAL IVP ONE (00:15)
[2022-12-28] MEDS: HYDROCODONE/ACETAMINOPHEN 5-325 MG TABLET PO PRN (04:33)
[2022-12-28 05:06] LABS: GLUCOSE,POINT OF CARE 99 MG/DL (70-110)
[2022-12-28 06:18] LABS: BASOPHILS % (AUTO) 0.9 % (0.0-2.0); EOSINOPHILS % (AUTO) 3.8 % (1.0-6.0); HEMATOCRIT 27.8 % (36-46); LYMPHOCYTES # (AUTO) 0.8 K/uL (1.0-4.8); LYMPHOCYTES % (AUTO) 9.3 % (22.0-44.0); MEAN CORPUSCULAR HEMOGLOBIN 32.7 pg (26.0-34.0); MEAN CORPUSCULAR HGB CONC 32.5 G/dL (31.0-37.0); MEAN CORPUSCULAR VOLUME 101 fL (80-100); MONOCYTES # (AUTO) 0.9 K/uL (0.1-1.0); MONOCYTES % (AUTO) 10.1 % (2.0-9.0); NEUTROPHILS # (AUTO) 6.8 K/uL (1.8-7.7); NEUTROPHILS % (AUTO) 75.9 % (40.0-70.0); PLATELET COUNT (AUTO) 141 K/uL (150-450); RED BLOOD CELL COUNT(AUTO) 2.77 MIL/uL (4.00-5.20); RED CELL DISTRIBUTION WIDTH 16.5 % (11.5-14.5)
[2022-12-28 06:23] LABS: CALCIUM, TOTAL 8.3 mg/dL (8.8-10.5); CREATININE 6.27 mg/dL (0.60-1.30); POTASSIUM 4.2 mmol/L (3.5-5.1)
[2022-12-28] MEDS ORDERED: SODIUM CHLORIDE 0.9% 250 ML IV ONE (06:28)
[2022-12-28 07:11] LABS: GLUCOSE,POINT OF CARE 73 MG/DL (70-110)
[2022-12-28] MEDS: METOPROLOL TARTRATE 25 MG TABLET NG SCH (09:00)
[2022-12-28] MEDS: PANTOPRAZOLE SODIUM 40 MG DR TABLET PO SCH (09:17)
[2022-12-28] MEDS: DOCUSATE SODIUM 100 MG CAPSULE PO SCH ×3 (09:17→20:52)
[2022-12-28] MEDS: DiphenhydrAMINE HCL 50 MG/ML VIAL IVP PRN (09:19)
[2022-12-28] MEDS: ETHYL ALCOHOL 62% ANTISEPTIC NASAL SANITIZER 0.6 ML AMPUL NASAL SCH ×2 (09:29→20:40)
[2022-12-28] MEDS: ASPIRIN 81 MG DR TABLET PO SCH (09:30)
[2022-12-28 17:56] LABS: GLUCOSE,POINT OF CARE 77 MG/DL (70-110)
[2022-12-28 17:56] LABS: GLUCOSE,POINT OF CARE 69 MG/DL (70-110)
[2022-12-28 17:56] LABS: GLUCOSE,POINT OF CARE 85 MG/DL (70-110)
[2022-12-28] MEDS: ZOLPIDEM TARTRATE 5 MG TABLET PO PRN (20:40)
[2022-12-28] MEDS: ATORVASTATIN CALCIUM 10 MG TABLET PO SCH (20:40)
[2022-12-28] MEDS: CARVEDILOL 3.125 MG TABLET PO SCH (20:40)
[2022-12-28 21:57] LABS: GLUCOSE,POINT OF CARE 73 MG/DL (70-110)
[2022-12-29] VITALS (8 sets, daily range): BP systolic 111–158; BP diastolic 60–95
[2022-12-29] MEDS: MORPHINE SULFATE 2 MG/ML SYRINGE IVP PRN ×3 (01:19→21:15)
[2022-12-29] MEDS ORDERED: HALOPERIDOL LACTATE 5 MG/ML VIAL IM ONE (05:00)
[2022-12-29] MEDS ORDERED: MELATONIN 3 MG TABLET PO ONE (05:00)
[2022-12-29] MEDS ORDERED: DiphenhydrAMINE HCL 50 MG/ML VIAL IVP ONE (05:00)
[2022-12-29] MEDS: LOSARTAN POTASSIUM 25 MG TABLET PO SCH (08:59)
[2022-12-29] MEDS: CARVEDILOL 3.125 MG TABLET PO SCH ×2 (08:59→20:14)
[2022-12-29] MEDS: DOCUSATE SODIUM 100 MG CAPSULE PO SCH ×2 (08:59→20:14)
[2022-12-29] MEDS: ETHYL ALCOHOL 62% ANTISEPTIC NASAL SANITIZER 0.6 ML AMPUL NASAL SCH ×2 (08:59→20:12)
[2022-12-29] MEDS: PANTOPRAZOLE SODIUM 40 MG DR TABLET PO SCH (09:00)
[2022-12-29] MEDS: ASPIRIN 81 MG DR TABLET PO SCH (09:00)
[2022-12-29 09:51] LABS: GLUCOMETER DEV NAME(LOC) 5N.2C; GLUCOSE,POINT OF CARE 76 MG/DL (70-110)
[2022-12-29 10:07] LABS: EOSINOPHILS % (AUTO) 4.7 % (1.0-6.0); HEMATOCRIT 27.5 % (36-46); HEMOGLOBIN 9.2 g/dL (12.0-16.0); LYMPHOCYTES # (AUTO) 0.6 K/uL (1.0-4.8); LYMPHOCYTES % (AUTO) 8.7 % (22.0-44.0); MEAN CORPUSCULAR HEMOGLOBIN 33.5 pg (26.0-34.0); MEAN CORPUSCULAR HGB CONC 33.4 G/dL (31.0-37.0); MEAN CORPUSCULAR VOLUME 100 fL (80-100); MONOCYTES # (AUTO) 0.9 K/uL (0.1-1.0); MONOCYTES % (AUTO) 12.2 % (2.0-9.0); NEUTROPHILS # (AUTO) 5.1 K/uL (1.8-7.7); NEUTROPHILS % (AUTO) 73.4 % (40.0-70.0); PLATELET COUNT (AUTO) 143 K/uL (150-450); RED BLOOD CELL COUNT(AUTO) 2.74 MIL/uL (4.00-5.20); RED CELL DISTRIBUTION WIDTH 16.6 % (11.5-14.5)
[2022-12-29 10:19] LABS: ALBUMIN 2.9 g/dL (3.4-5.0); BILIRUBIN,TOTAL 1.6 mg/dL (0.1-1.0); CALCIUM, TOTAL 8.8 mg/dL (8.8-10.5); CREATININE 5.45 mg/dL (0.60-1.30); POTASSIUM 4.2 mmol/L (3.5-5.1); VANCOMYCIN,RANDOM 13.9 mcg/mL (25.0-50.0)
[2022-12-29] MEDS ORDERED: VANCOMYCIN 1GM/WATER(PEG/NADA) 200 ML IV ONE (11:00)
[2022-12-29] MEDS: DiphenhydrAMINE HCL 50 MG/ML VIAL IVP PRN ×2 (11:57→20:13)
[2022-12-29] MEDS ORDERED: SODIUM CHLORIDE 0.9% 250 ML IV ONE (16:46)
[2022-12-29] MEDS: HYDROCODONE/ACETAMINOPHEN 5-325 MG TABLET PO PRN (20:12)
[2022-12-29] MEDS: ATORVASTATIN CALCIUM 10 MG TABLET PO SCH (20:14)
[2022-12-30] MEDS: HEPARIN SODIUM 25000 UNITS/D5W 250 ML IV PRN (04:48)
[2022-12-30 05:12] VITALS: BP 136/81
[2022-12-30 06:12] LABS: GLUCOMETER DEV NAME(LOC) 5S.1B; GLUCOSE,POINT OF CARE 87 MG/DL (70-110)
[2022-12-30 08:01] VITALS: BP 129/77
[2022-12-30] MEDS: DOCUSATE SODIUM 100 MG CAPSULE PO SCH ×2 (09:19→20:55)
[2022-12-30] MEDS: PANTOPRAZOLE SODIUM 40 MG DR TABLET PO SCH (09:20)
[2022-12-30] MEDS: ASPIRIN 81 MG DR TABLET PO SCH (09:20)
[2022-12-30] MEDS: LOSARTAN POTASSIUM 25 MG TABLET PO SCH (09:20)
[2022-12-30] MEDS: ETHYL ALCOHOL 62% ANTISEPTIC NASAL SANITIZER 0.6 ML AMPUL NASAL SCH ×2 (09:21→20:55)
[2022-12-30] MEDS: CARVEDILOL 3.125 MG TABLET PO SCH ×2 (09:21→20:56)
[2022-12-30 09:34] LABS: BASOPHILS % (AUTO) 0.7 % (0.0-2.0); EOSINOPHILS % (AUTO) 3.5 % (1.0-6.0); HEMATOCRIT 26.2 % (36-46); HEMOGLOBIN 8.8 g/dL (12.0-16.0); LYMPHOCYTES # (AUTO) 0.6 K/uL (1.0-4.8); LYMPHOCYTES % (AUTO) 8.3 % (22.0-44.0); MEAN CORPUSCULAR HEMOGLOBIN 33.5 pg (26.0-34.0); MEAN CORPUSCULAR HGB CONC 33.4 G/dL (31.0-37.0); MEAN CORPUSCULAR VOLUME 100 fL (80-100); MONOCYTES # (AUTO) 0.9 K/uL (0.1-1.0); MONOCYTES % (AUTO) 12.9 % (2.0-9.0); NEUTROPHILS # (AUTO) 5.2 K/uL (1.8-7.7); NEUTROPHILS % (AUTO) 74.6 % (40.0-70.0); PLATELET COUNT (AUTO) 133 K/uL (150-450); RED BLOOD CELL COUNT(AUTO) 2.61 MIL/uL (4.00-5.20); RED CELL DISTRIBUTION WIDTH 16.8 % (11.5-14.5)
[2022-12-30 09:47] LABS: ALBUMIN 2.9 g/dL (3.4-5.0); BILIRUBIN,TOTAL 1.9 mg/dL (0.1-1.0); CREATININE 6.68 mg/dL (0.60-1.30); TOTAL PROTEIN, SERUM 7.1 g/dL (6.4-8.2)
[2022-12-30 11:16] LABS: GLUCOMETER DEV NAME(LOC) 5S.1B; GLUCOSE,POINT OF CARE 95 MG/DL (70-110)
[2022-12-30] MEDS ORDERED: ETOMIDATE 2 MG/ML 10 ML VIAL IVP ONE (12:00)
[2022-12-30] MEDS ORDERED: ONDANSETRON HCL 4 MG/2 ML VIAL IVP ONE (12:00)
[2022-12-30] MEDS ORDERED: VECURONIUM BROMIDE 10 MG/VIAL IVP ONE (12:00)
[2022-12-30] MEDS: HEPARIN SODIUM,PORCINE 5,000 UNITS/ML VIAL IVP PRN (14:23)
[2022-12-30 16:17] VITALS: BP 111/58
[2022-12-30] MEDS ORDERED: VANCOMYCIN HCL 1.25 GM in DEXTROSE 5%-WATER 250 ML IV ONE (20:00)
[2022-12-30 20:15] VITALS: BP 118/62
[2022-12-30 20:16] LABS: GLUCOMETER DEV NAME(LOC) 5S.1B; GLUCOSE,POINT OF CARE 89 MG/DL (70-110)
[2022-12-30 20:21] LABS: GLUCOMETER DEV NAME(LOC) 5N.2C; GLUCOSE,POINT OF CARE 94 MG/DL (70-110)
[2022-12-30] MEDS ORDERED: SODIUM CHLORIDE 0.9% 250 ML IV ONE (20:52)
[2022-12-30] MEDS: DiphenhydrAMINE HCL 50 MG/ML VIAL IVP PRN (20:53)
[2022-12-30] MEDS: MORPHINE SULFATE 2 MG/ML SYRINGE IVP PRN (20:54)
[2022-12-30] MEDS: ATORVASTATIN CALCIUM 10 MG TABLET PO SCH (20:55)
[2022-12-30] MEDS ORDERED: HALOPERIDOL LACTATE 5 MG/ML VIAL IVP ONE (23:15)
[2022-12-31] VITALS (22 sets, daily range): BP systolic 68–131; BP diastolic 28–82
[2022-12-31] MEDS: MORPHINE SULFATE 2 MG/ML SYRINGE IVP PRN (01:26)
[2022-12-31] MEDS: HEPARIN SODIUM 25000 UNITS/D5W 250 ML IV PRN (03:40)
[2022-12-31] MEDS: DiphenhydrAMINE HCL 50 MG/ML VIAL IVP PRN (04:19)
[2022-12-31 07:40] LABS: BASOPHILS % (AUTO) 0.4 % (0.0-2.0); EOSINOPHILS % (AUTO) 3.2 % (1.0-6.0); HEMATOCRIT 22.8 % (36-46); HEMOGLOBIN 7.5 g/dL (12.0-16.0); LYMPHOCYTES # (AUTO) 0.7 K/uL (1.0-4.8); LYMPHOCYTES % (AUTO) 8.6 % (22.0-44.0); MEAN CORPUSCULAR HEMOGLOBIN 33.1 pg (26.0-34.0); MEAN CORPUSCULAR HGB CONC 32.8 G/dL (31.0-37.0); MEAN CORPUSCULAR VOLUME 101 fL (80-100); MONOCYTES # (AUTO) 1.1 K/uL (0.1-1.0); NEUTROPHILS % (AUTO) 73.8 % (40.0-70.0); PLATELET COUNT (AUTO) 145 K/uL (150-450); RED BLOOD CELL COUNT(AUTO) 2.26 MIL/uL (4.00-5.20); RED CELL DISTRIBUTION WIDTH 16.9 % (11.5-14.5)
[2022-12-31] MEDS: ETHYL ALCOHOL 62% ANTISEPTIC NASAL SANITIZER 0.6 ML AMPUL NASAL SCH ×2 (08:24→21:10)
[2022-12-31] MEDS: PANTOPRAZOLE SODIUM 40 MG DR TABLET PO SCH (08:24)
[2022-12-31] MEDS: DOCUSATE SODIUM 100 MG CAPSULE PO SCH ×2 (08:24→21:11)
[2022-12-31] MEDS: ASPIRIN 81 MG DR TABLET PO SCH (08:25)
[2022-12-31] MEDS: LOSARTAN POTASSIUM 25 MG TABLET PO SCH (08:26)
[2022-12-31] MEDS: METOPROLOL SUCCINATE 25 MG ER TABLET PO SCH ×2 (08:26→21:00)
[2022-12-31 08:36] LABS: ALBUMIN 2.8 g/dL (3.4-5.0); BILIRUBIN,TOTAL 2.1 mg/dL (0.1-1.0); CALCIUM, TOTAL 8.7 mg/dL (8.8-10.5); CREATININE 7.57 mg/dL (0.60-1.30); POTASSIUM 4.7 mmol/L (3.5-5.1); TOTAL PROTEIN, SERUM 6.8 g/dL (6.4-8.2)
[2022-12-31] MEDS: HEPARIN SODIUM,PORCINE 5,000 UNITS/ML VIAL IVP PRN (10:20)
[2022-12-31] MEDS: EPOETIN ALFA 10,000 UNITS/ML VIAL SQ SCH ×2 (11:09→22:46)
[2022-12-31] MEDS ORDERED: SODIUM CHLORIDE 0.9% 1,000 ML IV ONE (12:15)
[2022-12-31 18:06] LABS: GLUCOMETER DEV NAME(LOC) 5N.1C; GLUCOSE,POINT OF CARE 79 MG/DL (70-110)
[2022-12-31] MEDS ORDERED: ALBUMIN HUMAN 25%-25GM/100ML 100 ML IV ONE (18:30)
[2022-12-31] MEDS ORDERED: SODIUM CHLORIDE 0.9% 250 ML IV ONE (18:30)
[2022-12-31] MEDS ORDERED: PROPOFOL 1000 MG/ISO-OSM 100 ML IV PRN (19:00)
[2022-12-31] MEDS: NOREPINEPHRINE 8 MG/D5%-WATER 250 ML IV PRN (19:36)
[2022-12-31 19:46] LABS: ABG BASE EXCESS -1.9 mmol/L (-2.0-3.0); ABG CARBOXYHEMOGLOBIN 1.9 % (0.0-1.5); ABG METHEMOGLOBIN 0.3 % (0.0-1.5); ABG OXYGEN CONTENT 8.6 mL/dL (15.0-23.0); ABG OXYGEN SATURATION 99.7 % (95.0-98.0); ABG OXYHEMOGLOBIN 97.5 % (94.0-100.0); ABG PCO2 36 mmHg (35-45); ABG PH 7.417 (7.35-7.450); PO2, ARTERIAL BG 462.1 mmHg (79.0-87.0); SOURCE, BLOOD GAS ARTERIAL; TEMPERATURE, FAHRENHEIT, BG 98.6 FAHREN (96.0-98.6)
[2022-12-31 19:50] LABS: ABG TOTAL HEMOGLOBIN 5.3 G/dL (12.0-18.0); O2 DEVICE,BLOOD GAS VENTILATOR (ROOM AIR); PEEP,BG 5 cm H2O; SITE, BLOOD GAS LFT RADIAL; VT, ABG 550 ml
[2022-12-31 20:14] LABS: CALCIUM, TOTAL 8.2 mg/dL (8.8-10.5); CREATININE 4.25 mg/dL (0.60-1.30); POTASSIUM 4.3 mmol/L (3.5-5.1)
[2022-12-31] MEDS ORDERED: PANTOPRAZOLE SODIUM 40 MG/VIAL IVP ONE (20:15)
[2022-12-31 20:16] LABS: GLUCOMETER DEV NAME(LOC) 5S.2C; GLUCOSE,POINT OF CARE 106 MG/DL (70-110)
[2022-12-31 20:16] LABS: GLUCOMETER DEV NAME(LOC) 5S.2C; GLUCOSE,POINT OF CARE 104 MG/DL (70-110)
[2022-12-31 20:16] LABS: GLUCOMETER DEV NAME(LOC) 5S.2C; GLUCOSE,POINT OF CARE 103 MG/DL (70-110)
[2022-12-31 20:18] LABS: INR 1.5 (0.9-1.1); PROTHROMBIN TIME 16.1 SEC (9.4-11.6)
[2022-12-31 20:20] LABS: ALBUMIN 2.7 g/dL (3.4-5.0); BASOPHILS % (AUTO) 0.3 % (0.0-2.0); BILIRUBIN,TOTAL 2.7 mg/dL (0.1-1.0); EOSINOPHILS % (AUTO) 0.1 % (1.0-6.0); LYMPHOCYTES # (AUTO) 0.7 K/uL (1.0-4.8); LYMPHOCYTES % (AUTO) 4.4 % (22.0-44.0); MEAN CORPUSCULAR HEMOGLOBIN 32.7 pg (26.0-34.0); MEAN CORPUSCULAR HGB CONC 31.9 G/dL (31.0-37.0); MEAN CORPUSCULAR VOLUME 103 fL (80-100); MONOCYTES # (AUTO) 1.2 K/uL (0.1-1.0); NEUTROPHILS # (AUTO) 13.6 K/uL (1.8-7.7); PLATELET COUNT (AUTO) 153 K/uL (150-450); RED BLOOD CELL COUNT(AUTO) 1.44 MIL/uL (4.00-5.20); RED CELL DISTRIBUTION WIDTH 16.8 % (11.5-14.5); TOTAL PROTEIN, SERUM 5.8 g/dL (6.4-8.2)
[2022-12-31 20:22] LABS: NEUTROPHILS % (AUTO) 87.2 % (40.0-70.0)
[2022-12-31 20:23] LABS: HEMATOCRIT 14.8 % (36-46); HEMOGLOBIN 4.7 g/dL (12.0-16.0)
[2022-12-31 20:36] LABS: GLUCOMETER DEV NAME(LOC) 5N.2C; GLUCOSE,POINT OF CARE 104 MG/DL (70-110)
[2022-12-31 21:47] LABS: OCCULT BLOOD,GASTRIC FLUID NEGATIVE (NEGATIVE)
[2022-12-31] MEDS: ATORVASTATIN CALCIUM 10 MG TABLET PO SCH (22:45)
[2022-12-31 22:57] LABS: % IRON SATURATION 27.8 % (22-44)
[2022-12-31] MEDS ORDERED: SODIUM CHLORIDE 0.9% 100 ML ONE (23:22)
[2022-12-31] MEDS ORDERED: IOHEXOL 350 MG/ML 100 ML VIAL ONE (23:22)
[2023-01-01] VITALS (32 sets, daily range): BP systolic 64–126; BP diastolic 39–74
[2023-01-01 00:56] LABS: GLUCOSE,POINT OF CARE 112 MG/DL (70-110)
[2023-01-01] MEDS: NOREPINEPHRINE 8 MG/D5%-WATER 250 ML IV PRN ×2 (03:51→10:32)
[2023-01-01 05:37] LABS: BASOPHILS % (AUTO) 0.2 % (0.0-2.0); EOSINOPHILS % (AUTO) 0.1 % (1.0-6.0); LYMPHOCYTES # (AUTO) 0.9 K/uL (1.0-4.8); LYMPHOCYTES % (AUTO) 3.7 % (22.0-44.0); MEAN CORPUSCULAR HEMOGLOBIN 31.6 pg (26.0-34.0); MEAN CORPUSCULAR HGB CONC 32.8 G/dL (31.0-37.0); MEAN CORPUSCULAR VOLUME 97 fL (80-100); MONOCYTES # (AUTO) 1.5 K/uL (0.1-1.0); MONOCYTES % (AUTO) 6.7 % (2.0-9.0); NEUTROPHILS # (AUTO) 20.5 K/uL (1.8-7.7); PLATELET COUNT (AUTO) 124 K/uL (150-450); RED BLOOD CELL COUNT(AUTO) 1.71 MIL/uL (4.00-5.20); RED CELL DISTRIBUTION WIDTH 18.8 % (11.5-14.5)
[2023-01-01 05:45] LABS: NEUTROPHILS % (AUTO) 89.3 % (40.0-70.0)
[2023-01-01 05:46] LABS: HEMATOCRIT 16.4 % (36-46); HEMOGLOBIN 5.4 g/dL (12.0-16.0)
[2023-01-01] MEDS ORDERED: CefTRIAXone 1 GM/DEXTROSE 50 ML IV ONE (07:00)
[2023-01-01] MEDS: PANTOPRAZOLE SODIUM 40 MG DR TABLET PO SCH (08:21)
[2023-01-01] MEDS: ETHYL ALCOHOL 62% ANTISEPTIC NASAL SANITIZER 0.6 ML AMPUL NASAL SCH ×2 (08:21→21:21)
[2023-01-01] MEDS: DOCUSATE SODIUM 100 MG CAPSULE PO SCH ×2 (08:22→21:21)
[2023-01-01] MEDS: METOPROLOL SUCCINATE 25 MG ER TABLET PO SCH ×2 (08:22→09:00)
[2023-01-01] MEDS: LOSARTAN POTASSIUM 25 MG TABLET PO SCH (09:00)
[2023-01-01] MEDS ORDERED: SODIUM CHLORIDE 0.9% 250 ML IV ONE (09:19)
[2023-01-01] MEDS ORDERED: FUROSEMIDE 20 MG/2 ML VIAL IVP ONE (09:30)
[2023-01-01] MEDS: PHENYLEPHRINE 200 MG/D5%-WATER 250 ML IV PRN (10:44)
[2023-01-01] MEDS ORDERED: SODIUM CHLORIDE 0.9% 500 ML IV ONE (11:13)
[2023-01-01] MEDS ORDERED: VANCOMYCIN 1GM/WATER(PEG/NADA) 200 ML IV ONE (12:00)
[2023-01-01 13:37] LABS: CALCIUM, TOTAL 8.8 mg/dL (8.8-10.5); CREATININE 5.48 mg/dL (0.60-1.30); POTASSIUM 4.5 mmol/L (3.5-5.1)
[2023-01-01 13:41] LABS: PHOSPHORUS 6.9 mg/dL (2.5-4.9)
[2023-01-01] MEDS ORDERED: SODIUM CHLORIDE 0.9% 100 ML ONE (15:01)
[2023-01-01] MEDS ORDERED: IOHEXOL 350 MG/ML 100 ML VIAL ONE (15:01)
[2023-01-01 16:06] LABS: GLUCOSE,POINT OF CARE 184 MG/DL (70-110)
[2023-01-01 17:23] LABS: HEMATOCRIT 23.3 % (36-46); HEMOGLOBIN 7.8 g/dL (12.0-16.0)
[2023-01-01] MEDS: ATORVASTATIN CALCIUM 10 MG TABLET PO SCH (21:42)
[2023-01-01 22:11] LABS: GLUCOSE,POINT OF CARE 131 MG/DL (70-110)
[2023-01-02] VITALS (17 sets, daily range): BP systolic 99–136; BP diastolic 43–74
[2023-01-02] MEDS ORDERED: SODIUM CHLORIDE 0.9% 500 ML IV ONE ×2 (02:07→09:02)
[2023-01-02 02:21] LABS: GLUCOSE,POINT OF CARE 138 MG/DL (70-110)
[2023-01-02 03:13] LABS: BASOPHILS % (AUTO) 0.4 % (0.0-2.0); EOSINOPHILS % (AUTO) 0.4 % (1.0-6.0); HEMATOCRIT 22.2 % (36-46); HEMOGLOBIN 7.6 g/dL (12.0-16.0); LYMPHOCYTES # (AUTO) 1.3 K/uL (1.0-4.8); LYMPHOCYTES % (AUTO) 8.4 % (22.0-44.0); MEAN CORPUSCULAR HEMOGLOBIN 30.9 pg (26.0-34.0); MEAN CORPUSCULAR HGB CONC 34.2 G/dL (31.0-37.0); MEAN CORPUSCULAR VOLUME 90 fL (80-100); MONOCYTES # (AUTO) 2.1 K/uL (0.1-1.0); MONOCYTES % (AUTO) 13.6 % (2.0-9.0); NEUTROPHILS # (AUTO) 11.8 K/uL (1.8-7.7); NEUTROPHILS % (AUTO) 77.2 % (40.0-70.0); PLATELET COUNT (AUTO) 153 K/uL (150-450); RED BLOOD CELL COUNT(AUTO) 2.45 MIL/uL (4.00-5.20); RED CELL DISTRIBUTION WIDTH 17.8 % (11.5-14.5)
[2023-01-02] MEDS: MORPHINE SULFATE 2 MG/ML SYRINGE IVP PRN (03:15)
[2023-01-02 03:28] LABS: ALBUMIN 2.7 g/dL (3.4-5.0); BILIRUBIN,TOTAL 6.9 mg/dL (0.1-1.0); CALCIUM, TOTAL 8.6 mg/dL (8.8-10.5); CREATININE 5.74 mg/dL (0.60-1.30); POTASSIUM 4.4 mmol/L (3.5-5.1); TOTAL PROTEIN, SERUM 6.3 g/dL (6.4-8.2)
[2023-01-02] MEDS: PHENYLEPHRINE 200 MG/D5%-WATER 250 ML IV PRN ×2 (03:30→15:53)
[2023-01-02 06:36] LABS: GLUCOSE,POINT OF CARE 106 MG/DL (70-110)
[2023-01-02] MEDS: PANTOPRAZOLE SODIUM 40 MG DR TABLET PO SCH (08:12)
[2023-01-02] MEDS: DOCUSATE SODIUM 100 MG CAPSULE PO SCH ×2 (08:12→21:10)
[2023-01-02] MEDS: ETHYL ALCOHOL 62% ANTISEPTIC NASAL SANITIZER 0.6 ML AMPUL NASAL SCH ×2 (08:12→21:10)
[2023-01-02] MEDS: EPOETIN ALFA 10,000 UNITS/ML 2 ML VIAL SQ SCH (08:17)
[2023-01-02 10:24] LABS: HEMATOCRIT 24.4 % (36-46); HEMOGLOBIN 8.2 g/dL (12.0-16.0)
[2023-01-02] MEDS: ACETAMINOPHEN 325 MG TABLET PO PRN (10:36)
[2023-01-02] MEDS: DEXMEDETOMIDINE HCL 400 MCG in SODIUM CHLORIDE 0.9% 96 ML IV PRN (10:37)
[2023-01-02] MEDS ORDERED: SODIUM CHLORIDE 0.9% 2,000 ML ONE (12:03)
[2023-01-02] MEDS ORDERED: *CLINICAL-CEFEPIME DOSING CLINICAL ONE (15:30)
[2023-01-02] MEDS ORDERED: CEFEPIME HCL 1 GM in DEXTROSE 5%-WATER 50 ML IV ONE (16:00)
[2023-01-02 19:26] LABS: GLUCOSE,POINT OF CARE 109 MG/DL (70-110)
[2023-01-02 19:26] LABS: GLUCOSE,POINT OF CARE 100 MG/DL (70-110)
[2023-01-02 20:35] LABS: APPEARANCE,URINE TURBID (CLEAR); BILIRUBIN,URINE NEGATIVE (NEGATIVE); GLUCOSE, URINE (UA) NEGATIVE (NEGATIVE); KETONES,URINE NEGATIVE (NEGATIVE); LEUKOCYTE ESTERASE ,URINE LARGE (NEGATIVE); NITRATE,URINE NEGATIVE (NEGATIVE); OCCULT BLOOD,URINE LARGE (NEGATIVE); PH,URINE 5.5 (5.0-8.0); PROTEIN,URINE 100-200,SEE CONFIRM mg/dL (NEGATIVE); SPECIFIC GRAVITIY, URINE 1.021 (1.003-1.030); UROBILINOGEN,URINE <=1.0 mg/dL (<=1.0)
[2023-01-02 20:46] LABS: BACTERIA,URINE Moderate /HPF (None Seen); SQUAMOUS EPITHELIAL CELL,UR Moderate /LPF (None Seen); SULFOSALICYLIC ACID,URINE 3+ (Negative); WBC,URINE 51-100 /HPF (0-5); YEAST,URINE Many /HPF (None Seen)
[2023-01-02] MEDS: ATORVASTATIN CALCIUM 10 MG TABLET PO SCH (21:10)
[2023-01-03] VITALS: BP 126/63
[2023-01-03] MEDS: DEXMEDETOMIDINE HCL 400 MCG in SODIUM CHLORIDE 0.9% 96 ML IV PRN ×3 (00:57→22:19)
[2023-01-03 03:16] LABS: GLUCOSE,POINT OF CARE 102 MG/DL (70-110)
[2023-01-03 04:00] VITALS: BP 116/56
[2023-01-03 05:48] LABS: BASOPHILS % (AUTO) 0.4 % (0.0-2.0); EOSINOPHILS % (AUTO) 1.6 % (1.0-6.0); HEMATOCRIT 23.5 % (36-46); LYMPHOCYTES # (AUTO) 0.8 K/uL (1.0-4.8); LYMPHOCYTES % (AUTO) 5.4 % (22.0-44.0); MEAN CORPUSCULAR HEMOGLOBIN 31.7 pg (26.0-34.0); MEAN CORPUSCULAR HGB CONC 33.9 G/dL (31.0-37.0); MEAN CORPUSCULAR VOLUME 94 fL (80-100); MONOCYTES # (AUTO) 1.3 K/uL (0.1-1.0); MONOCYTES % (AUTO) 9.2 % (2.0-9.0); NEUTROPHILS # (AUTO) 12.1 K/uL (1.8-7.7); NEUTROPHILS % (AUTO) 83.4 % (40.0-70.0); PLATELET COUNT (AUTO) 162 K/uL (150-450); RED BLOOD CELL COUNT(AUTO) 2.51 MIL/uL (4.00-5.20); RED CELL DISTRIBUTION WIDTH 19.2 % (11.5-14.5)
[2023-01-03 06:13] LABS: ALBUMIN 2.6 g/dL (3.4-5.0); BILIRUBIN,TOTAL 8.5 mg/dL (0.1-1.0); CALCIUM, TOTAL 8.6 mg/dL (8.8-10.5); CREATININE 4.76 mg/dL (0.60-1.30); TOTAL PROTEIN, SERUM 6.4 g/dL (6.4-8.2)
[2023-01-03 08:00] VITALS: BP 121/60
[2023-01-03 08:21] LABS: GLUCOSE,POINT OF CARE 99 MG/DL (70-110)
[2023-01-03] MEDS: ETHYL ALCOHOL 62% ANTISEPTIC NASAL SANITIZER 0.6 ML AMPUL NASAL SCH ×2 (09:21→20:31)
[2023-01-03] MEDS: PANTOPRAZOLE SODIUM 40 MG DR TABLET PO SCH (09:21)
[2023-01-03] MEDS: DOCUSATE SODIUM 100 MG CAPSULE PO SCH ×2 (09:21→20:31)
[2023-01-03 10:21] LABS: ABG BASE EXCESS -2.4 mmol/L (-2.0-3.0); ABG CARBOXYHEMOGLOBIN 1.4 % (0.0-1.5); ABG HCO3 22.9 mmol/L (22.0-26.0); ABG METHEMOGLOBIN 0.3 % (0.0-1.5); ABG OXYGEN CONTENT 11.5 mL/dL (15.0-23.0); ABG OXYGEN SATURATION 98.6 % (95.0-98.0); ABG OXYHEMOGLOBIN 96.9 % (94.0-100.0); ABG PCO2 29 mmHg (35-45); ABG TOTAL HEMOGLOBIN 8.3 G/dL (12.0-18.0); PO2, ARTERIAL BG 114.2 mmHg (79.0-87.0); SOURCE, BLOOD GAS ARTERIAL; TEMPERATURE, FAHRENHEIT, BG 99.7 FAHREN (96.0-98.6)
[2023-01-03 10:22] LABS: ABG A-A DIFF O2 65.2 mmHg (10-20.0); CPAP, BG 5 cm H2O; O2 DEVICE,BLOOD GAS VENTILATOR (ROOM AIR); PRESSURE SUPPORT, BG 8 cm H2O; SITE, BLOOD GAS ARTERIAL LINE; SPONTANEOUS VT, BG 458 ml; VENT MODE, BG CPAP (ROOM AIR)
[2023-01-03] MEDS: PHENYLEPHRINE 200 MG/D5%-WATER 250 ML IV PRN (10:42)
[2023-01-03 12:00] VITALS: BP 114/53
[2023-01-03 16:00] VITALS: BP 106/51
[2023-01-03] MEDS ORDERED: CEFEPIME HCL 0.5 GM in DEXTROSE 5%-WATER 50 ML IV SCH (16:00)
[2023-01-03 17:21] LABS: GLUCOSE,POINT OF CARE 108 MG/DL (70-110)
[2023-01-03 20:00] VITALS: BP 106/51
[2023-01-03] MEDS: ATORVASTATIN CALCIUM 10 MG TABLET PO SCH (20:31)
[2023-01-03 23:11] LABS: GLUCOSE,POINT OF CARE 103 MG/DL (70-110)
[2023-01-04] VITALS (13 sets, daily range): BP systolic 99–145; BP diastolic 48–62
[2023-01-04 05:41] LABS: GLUCOSE,POINT OF CARE 99 MG/DL (70-110)
[2023-01-04 06:01] LABS: BASOPHILS % (AUTO) 0.3 % (0.0-2.0); EOSINOPHILS % (AUTO) 1.7 % (1.0-6.0); HEMOGLOBIN 7.6 g/dL (12.0-16.0); LYMPHOCYTES # (AUTO) 0.7 K/uL (1.0-4.8); MEAN CORPUSCULAR HEMOGLOBIN 31.6 pg (26.0-34.0); MEAN CORPUSCULAR VOLUME 96 fL (80-100); MONOCYTES # (AUTO) 0.9 K/uL (0.1-1.0); MONOCYTES % (AUTO) 7.6 % (2.0-9.0); NEUTROPHILS # (AUTO) 10.4 K/uL (1.8-7.7); NEUTROPHILS % (AUTO) 84.4 % (40.0-70.0); PLATELET COUNT (AUTO) 126 K/uL (150-450); RED CELL DISTRIBUTION WIDTH 18.5 % (11.5-14.5)
[2023-01-04 06:15] LABS: ALBUMIN 2.5 g/dL (3.4-5.0); BILIRUBIN,TOTAL 10.4 mg/dL (0.1-1.0); CALCIUM, TOTAL 8.2 mg/dL (8.8-10.5); CREATININE 5.81 mg/dL (0.60-1.30); POTASSIUM 4.9 mmol/L (3.5-5.1); TOTAL PROTEIN, SERUM 6.5 g/dL (6.4-8.2)
[2023-01-04 06:46] LABS: GLUCOSE,POINT OF CARE 95 MG/DL (70-110)
[2023-01-04] MEDS: DOCUSATE SODIUM 100 MG CAPSULE PO SCH ×2 (07:36→20:21)
[2023-01-04] MEDS: PANTOPRAZOLE SODIUM 40 MG DR TABLET PO SCH (07:37)
[2023-01-04] MEDS: EPOETIN ALFA 10,000 UNITS/ML 2 ML VIAL SQ SCH (07:42)
[2023-01-04] MEDS: ETHYL ALCOHOL 62% ANTISEPTIC NASAL SANITIZER 0.6 ML AMPUL NASAL SCH ×2 (07:42→20:18)
[2023-01-04 13:29] LABS: HEMATOCRIT 23.8 % (36-46); HEMOGLOBIN 7.9 g/dL (12.0-16.0)
[2023-01-04 14:41] LABS: GLUCOSE,POINT OF CARE 88 MG/DL (70-110)
[2023-01-04] MEDS ORDERED: *CLINICAL-MEROPENEM DOSING CLINICAL ONE (15:45)
[2023-01-04] MEDS ORDERED: VANCOMYCIN 1GM/WATER(PEG/NADA) 200 ML IV ONE (16:00)
[2023-01-04] MEDS: ATORVASTATIN CALCIUM 10 MG TABLET PO SCH (20:21)
[2023-01-04] MEDS ORDERED: MEROPENEM 1 GM in SODIUM CHLORIDE 0.9% 100 ML IV ONE (22:00)
[2023-01-04] MEDS ORDERED: SODIUM CHLORIDE 0.9% 500 ML IV ONE (22:37)
[2023-01-04] MEDS ORDERED: SODIUM CHLORIDE 0.9% 250 ML IV ONE (22:37)
[2023-01-04] MEDS: DEXMEDETOMIDINE HCL 400 MCG in SODIUM CHLORIDE 0.9% 96 ML IV PRN (23:08)
[2023-01-05] VITALS: BP 106/47
[2023-01-05 01:46] LABS: GLUCOSE,POINT OF CARE 77 MG/DL (70-110)
[2023-01-05 01:46] LABS: GLUCOSE,POINT OF CARE 80 MG/DL (70-110)
[2023-01-05 04:00] VITALS: BP 97/64
[2023-01-05] MEDS: PHENYLEPHRINE 200 MG/D5%-WATER 250 ML IV PRN (05:08)
[2023-01-05 07:01] LABS: GLUCOSE,POINT OF CARE 80 MG/DL (70-110)
[2023-01-05 07:12] LABS: BASOPHILS % (AUTO) 0.4 % (0.0-2.0); EOSINOPHILS % (AUTO) 1.5 % (1.0-6.0); HEMATOCRIT 22.7 % (36-46); HEMOGLOBIN 7.5 g/dL (12.0-16.0); LYMPHOCYTES # (AUTO) 0.4 K/uL (1.0-4.8); LYMPHOCYTES % (AUTO) 3.6 % (22.0-44.0); MEAN CORPUSCULAR HEMOGLOBIN 32.4 pg (26.0-34.0); MEAN CORPUSCULAR HGB CONC 33.1 G/dL (31.0-37.0); MEAN CORPUSCULAR VOLUME 98 fL (80-100); MONOCYTES # (AUTO) 0.9 K/uL (0.1-1.0); MONOCYTES % (AUTO) 7.6 % (2.0-9.0); NEUTROPHILS # (AUTO) 10.7 K/uL (1.8-7.7); PLATELET COUNT (AUTO) 112 K/uL (150-450); RED BLOOD CELL COUNT(AUTO) 2.32 MIL/uL (4.00-5.20); RED CELL DISTRIBUTION WIDTH 20.1 % (11.5-14.5)
[2023-01-05 07:13] LABS: NEUTROPHILS % (AUTO) 86.9 % (40.0-70.0)
[2023-01-05 07:21] LABS: CALCIUM, TOTAL 8.3 mg/dL (8.8-10.5); CREATININE 4.81 mg/dL (0.60-1.30); POTASSIUM 4.4 mmol/L (3.5-5.1)
[2023-01-05 07:27] LABS: ALBUMIN 2.4 g/dL (3.4-5.0); BILIRUBIN,TOTAL 12.7 mg/dL (0.1-1.0); TOTAL PROTEIN, SERUM 6.3 g/dL (6.4-8.2)
[2023-01-05 08:00] VITALS: BP 110/45
[2023-01-05] MEDS: ETHYL ALCOHOL 62% ANTISEPTIC NASAL SANITIZER 0.6 ML AMPUL NASAL SCH ×2 (08:32→20:39)
[2023-01-05] MEDS: DOCUSATE SODIUM 100 MG CAPSULE PO SCH ×2 (08:32→20:39)
[2023-01-05] MEDS: PANTOPRAZOLE SODIUM 40 MG DR TABLET PO SCH (08:32)
[2023-01-05] MEDS: DEXMEDETOMIDINE HCL 400 MCG in SODIUM CHLORIDE 0.9% 96 ML IV PRN ×2 (09:20→17:12)
[2023-01-05] MEDS: ACETAMINOPHEN 325 MG TABLET PO PRN (10:44)
[2023-01-05 12:00] VITALS: BP 100/35
[2023-01-05 16:00] VITALS: BP 107/45
[2023-01-05 16:51] LABS: GLUCOSE,POINT OF CARE 88 MG/DL (70-110)
[2023-01-05] MEDS: MEROPENEM 500 MG in SODIUM CHLORIDE 0.9% 50 ML IV SCH (17:18)
[2023-01-05 19:15] LABS: APPEARANCE,URINE HAZY (CLEAR); GLUCOSE, URINE (UA) NEGATIVE (NEGATIVE); KETONES,URINE NEGATIVE (NEGATIVE); LEUKOCYTE ESTERASE ,URINE LARGE (NEGATIVE); NITRATE,URINE NEGATIVE (NEGATIVE); OCCULT BLOOD,URINE LARGE (NEGATIVE); PH,URINE 6.5 (5.0-8.0); PROTEIN,URINE 300-600,SEE CONFIRM mg/dL (NEGATIVE); SPECIFIC GRAVITIY, URINE 1.019 (1.003-1.030); UROBILINOGEN,URINE <=1.0 mg/dL (<=1.0)
[2023-01-05 19:24] LABS: BILIRUBIN,URINE MODERATE (NEGATIVE)
[2023-01-05 19:37] LABS: BACTERIA,URINE Few /HPF (None Seen); RBC,URINE 26-50 /HPF (0-2); SQUAMOUS EPITHELIAL CELL,UR Moderate /LPF (None Seen); WBC,URINE 26-50 /HPF (0-5); YEAST,URINE Moderate /HPF (None Seen)
[2023-01-05 19:38] LABS: SULFOSALICYLIC ACID,URINE 4+ (Negative)
[2023-01-05 20:00] VITALS: BP 102/39
[2023-01-05 20:11] LABS: GLUCOSE,POINT OF CARE 103 MG/DL (70-110)
[2023-01-05] MEDS: ATORVASTATIN CALCIUM 10 MG TABLET PO SCH (20:39)
[2023-01-06] VITALS (8 sets, daily range): BP systolic 82–126; BP diastolic 34–55
[2023-01-06] MEDS ORDERED: SODIUM CHLORIDE 0.9% 250 ML IV ONE ×2 (00:46→22:16)
[2023-01-06] MEDS ORDERED: SODIUM CHLORIDE 0.9% 500 ML IV ONE ×2 (00:46→22:16)
[2023-01-06 01:41] LABS: GLUCOSE,POINT OF CARE 96 MG/DL (70-110)
[2023-01-06] MEDS: PHENYLEPHRINE 200 MG/D5%-WATER 250 ML IV PRN (01:46)
[2023-01-06] MEDS: ACETAMINOPHEN 325 MG TABLET PO PRN (05:31)
[2023-01-06] MEDS: DEXMEDETOMIDINE HCL 400 MCG in SODIUM CHLORIDE 0.9% 96 ML IV PRN (06:19)
[2023-01-06 06:29] LABS: ALBUMIN 2.4 g/dL (3.4-5.0); BILIRUBIN,TOTAL 13.8 mg/dL (0.1-1.0); CALCIUM, TOTAL 8.5 mg/dL (8.8-10.5); CREATININE 5.6 mg/dL (0.60-1.30); MAGNESIUM 2.1 mg/dL (1.80-2.40); PHOSPHORUS 5.2 mg/dL (2.5-4.9); POTASSIUM 4.6 mmol/L (3.5-5.1); TOTAL PROTEIN, SERUM 6.3 g/dL (6.4-8.2)
[2023-01-06 06:36] LABS: BILIRUBIN,DIRECT 10.6 mg/dL (0.00-0.20); BILIRUBIN,TOTAL 13.7 mg/dL (0.1-1.0)
[2023-01-06 07:06] LABS: GLUCOSE,POINT OF CARE 82 MG/DL (70-110)
[2023-01-06 07:54] LABS: BASOPHILS % (AUTO) 0.7 % (0.0-2.0); EOSINOPHILS % (AUTO) 1.8 % (1.0-6.0); HEMATOCRIT 25.8 % (36-46); HEMOGLOBIN 8.5 g/dL (12.0-16.0); LYMPHOCYTES # (AUTO) 0.4 K/uL (1.0-4.8); LYMPHOCYTES % (AUTO) 2.6 % (22.0-44.0); MEAN CORPUSCULAR HEMOGLOBIN 32.9 pg (26.0-34.0); MEAN CORPUSCULAR HGB CONC 32.9 G/dL (31.0-37.0); MEAN CORPUSCULAR VOLUME 100 fL (80-100); MONOCYTES # (AUTO) 1.1 K/uL (0.1-1.0); MONOCYTES % (AUTO) 7.7 % (2.0-9.0); NEUTROPHILS # (AUTO) 12.3 K/uL (1.8-7.7); PLATELET COUNT (AUTO) 153 K/uL (150-450); RED BLOOD CELL COUNT(AUTO) 2.58 MIL/uL (4.00-5.20); RED CELL DISTRIBUTION WIDTH 23.7 % (11.5-14.5)
[2023-01-06 07:56] LABS: NEUTROPHILS % (AUTO) 87.2 % (40.0-70.0)
[2023-01-06] MEDS: DOCUSATE SODIUM 100 MG CAPSULE PO SCH ×2 (09:11→20:39)
[2023-01-06] MEDS: PANTOPRAZOLE SODIUM 40 MG DR TABLET PO SCH (09:11)
[2023-01-06] MEDS: ETHYL ALCOHOL 62% ANTISEPTIC NASAL SANITIZER 0.6 ML AMPUL NASAL SCH ×2 (09:11→20:39)
[2023-01-06 15:06] LABS: GLUCOSE,POINT OF CARE 80 MG/DL (70-110)
[2023-01-06] MEDS: MIDODRINE HCL 5 MG TABLET PO SCH ×2 (16:52→20:40)
[2023-01-06] MEDS: MEROPENEM 500 MG in SODIUM CHLORIDE 0.9% 50 ML IV SCH (17:50)
[2023-01-06] MEDS: HYDROCODONE/ACETAMINOPHEN 5-325 MG TABLET PO PRN (17:57)
[2023-01-06 18:51] LABS: GLUCOSE,POINT OF CARE 80 MG/DL (70-110)
[2023-01-06] MEDS: ATORVASTATIN CALCIUM 10 MG TABLET PO SCH (20:40)
[2023-01-06] MEDS: MORPHINE SULFATE 2 MG/ML SYRINGE IVP PRN (21:05)
[2023-01-07] VITALS (12 sets, daily range): BP systolic 82–110; BP diastolic 47–75
[2023-01-07] MEDS: ONDANSETRON HCL 4 MG/2 ML VIAL IVP PRN ×2 (04:02→10:31)
[2023-01-07 06:13] LABS: EOSINOPHILS % (AUTO) 2.2 % (1.0-6.0); HEMATOCRIT 27.8 % (36-46); HEMOGLOBIN 9.2 g/dL (12.0-16.0); LYMPHOCYTES # (AUTO) 0.5 K/uL (1.0-4.8); LYMPHOCYTES % (AUTO) 3.7 % (22.0-44.0); MEAN CORPUSCULAR HEMOGLOBIN 32.9 pg (26.0-34.0); MEAN CORPUSCULAR VOLUME 100 fL (80-100); MONOCYTES # (AUTO) 1.2 K/uL (0.1-1.0); NEUTROPHILS # (AUTO) 11.6 K/uL (1.8-7.7); NEUTROPHILS % (AUTO) 84.1 % (40.0-70.0); PLATELET COUNT (AUTO) 178 K/uL (150-450); RED BLOOD CELL COUNT(AUTO) 2.78 MIL/uL (4.00-5.20); RED CELL DISTRIBUTION WIDTH 24.2 % (11.5-14.5)
[2023-01-07 06:36] LABS: ALBUMIN 2.3 g/dL (3.4-5.0); BILIRUBIN,TOTAL 13.5 mg/dL (0.1-1.0); CALCIUM, TOTAL 8.3 mg/dL (8.8-10.5); CREATININE 6.45 mg/dL (0.60-1.30); MAGNESIUM 2.2 mg/dL (1.80-2.40); PHOSPHORUS 5.6 mg/dL (2.5-4.9); POTASSIUM 4.8 mmol/L (3.5-5.1); TOTAL PROTEIN, SERUM 6.2 g/dL (6.4-8.2); VANCOMYCIN,RANDOM 21.3 mcg/mL (25.0-50.0)
[2023-01-07 06:41] LABS: GLUCOSE,POINT OF CARE 79 MG/DL (70-110)
[2023-01-07 06:41] LABS: GLUCOSE,POINT OF CARE 76 MG/DL (70-110)
[2023-01-07] MEDS: PANTOPRAZOLE SODIUM 40 MG DR TABLET PO SCH (09:03)
[2023-01-07] MEDS: DOCUSATE SODIUM 100 MG CAPSULE PO SCH ×3 (09:03→21:22)
[2023-01-07] MEDS: ETHYL ALCOHOL 62% ANTISEPTIC NASAL SANITIZER 0.6 ML AMPUL NASAL SCH ×2 (09:03→21:23)
[2023-01-07] MEDS: MIDODRINE HCL 5 MG TABLET PO SCH ×4 (09:03→21:23)
[2023-01-07] MEDS: EPOETIN ALFA 10,000 UNITS/ML 2 ML VIAL SQ SCH (09:05)
[2023-01-07] MEDS ORDERED: VANCOMYCIN HCL 750 MG in DEXTROSE 5%-WATER 250 ML IV ONE (14:00)
[2023-01-07 17:47] LABS: GLUCOSE,POINT OF CARE 78 MG/DL (70-110)
[2023-01-07] MEDS: ATORVASTATIN CALCIUM 10 MG TABLET PO SCH ×2 (21:00→21:23)
[2023-01-07] MEDS: MEROPENEM 500 MG in SODIUM CHLORIDE 0.9% 50 ML IV SCH (21:22)
[2023-01-08] VITALS: BP 99/47
[2023-01-08] MEDS: ONDANSETRON HCL 4 MG/2 ML VIAL IVP PRN (00:31)
[2023-01-08] MEDS: DEXTROSE 50%-WATER 25 GM/50 ML SYRINGE IVP PRN (00:35)
[2023-01-08 03:46] LABS: GLUCOSE,POINT OF CARE 113 MG/DL (70-110)
[2023-01-08 03:46] LABS: GLUCOSE,POINT OF CARE 52 MG/DL (70-110)
[2023-01-08 04:00] VITALS: BP 98/52
[2023-01-08 05:57] LABS: BASOPHILS % (AUTO) 0.2 % (0.0-2.0); HEMOGLOBIN 9.6 g/dL (12.0-16.0); LYMPHOCYTES # (AUTO) 0.4 K/uL (1.0-4.8); LYMPHOCYTES % (AUTO) 2.6 % (22.0-44.0); MEAN CORPUSCULAR VOLUME 100 fL (80-100); MONOCYTES # (AUTO) 1.1 K/uL (0.1-1.0); MONOCYTES % (AUTO) 8.2 % (2.0-9.0); NEUTROPHILS # (AUTO) 12.2 K/uL (1.8-7.7); PLATELET COUNT (AUTO) 194 K/uL (150-450); RED BLOOD CELL COUNT(AUTO) 3.01 MIL/uL (4.00-5.20)
[2023-01-08 06:07] LABS: ALBUMIN 2.4 g/dL (3.4-5.0); BILIRUBIN,TOTAL 13.8 mg/dL (0.1-1.0); CALCIUM, TOTAL 8.3 mg/dL (8.8-10.5); CREATININE 6.9 mg/dL (0.60-1.30); TOTAL PROTEIN, SERUM 6.4 g/dL (6.4-8.2)
[2023-01-08 06:37] LABS: GLUCOSE,POINT OF CARE 77 MG/DL (70-110)
[2023-01-08] MEDS ORDERED: DIGOXIN 250 MCG/ML 2 ML AMP IVP ONE (07:30)
[2023-01-08 08:00] VITALS: BP 93/48
[2023-01-08] MEDS: DOCUSATE SODIUM 100 MG CAPSULE PO SCH ×2 (09:47→22:33)
[2023-01-08] MEDS: MIDODRINE HCL 5 MG TABLET PO SCH ×3 (09:47→22:33)
[2023-01-08] MEDS: ETHYL ALCOHOL 62% ANTISEPTIC NASAL SANITIZER 0.6 ML AMPUL NASAL SCH ×2 (09:47→22:33)
[2023-01-08] MEDS: PANTOPRAZOLE SODIUM 40 MG DR TABLET PO SCH (09:49)
[2023-01-08 10:46] LABS: GLUCOSE,POINT OF CARE 92 MG/DL (70-110)
[2023-01-08 10:50] LABS: GLUCOSE,POINT OF CARE 75 MG/DL (70-110)
[2023-01-08 12:00] VITALS: BP 109/53
[2023-01-08] MEDS ORDERED: AMIODARONE HCL 360 MG in DEXTROSE 5%-WATER 242.8 ML IV ONE (13:15)
[2023-01-08] MEDS ORDERED: AMIODARONE HCL 150 MG in DEXTROSE 5%-WATER 97 ML IV ONE (13:15)
[2023-01-08 16:00] VITALS: BP 102/46
[2023-01-08] MEDS: MEROPENEM 500 MG in SODIUM CHLORIDE 0.9% 50 ML IV SCH (18:55)
[2023-01-08 20:00] VITALS: BP 106/44
[2023-01-08] MEDS ORDERED: AMIODARONE HCL 540 MG in DEXTROSE 5%-WATER 239.2 ML IV ONE (20:00)
[2023-01-08 20:47] LABS: GLUCOSE,POINT OF CARE 74 MG/DL (70-110)
[2023-01-08] MEDS: ATORVASTATIN CALCIUM 10 MG TABLET PO SCH (22:33)
[2023-01-09] VITALS (15 sets, daily range): BP systolic 99–151; BP diastolic 45–102
[2023-01-09] MEDS: DEXTROSE 50%-WATER 25 GM/50 ML SYRINGE IVP PRN (00:40)
[2023-01-09 03:56] LABS: GLUCOSE,POINT OF CARE 55 MG/DL (70-110)
[2023-01-09 03:56] LABS: GLUCOSE,POINT OF CARE 109 MG/DL (70-110)
[2023-01-09 05:17] LABS: GLUCOSE,POINT OF CARE 88 MG/DL (70-110)
[2023-01-09 06:56] LABS: GLUCOSE,POINT OF CARE 75 MG/DL (70-110)
[2023-01-09] MEDS: ETHYL ALCOHOL 62% ANTISEPTIC NASAL SANITIZER 0.6 ML AMPUL NASAL SCH ×2 (08:07→20:28)
[2023-01-09] MEDS: EPOETIN ALFA 10,000 UNITS/ML 2 ML VIAL SQ SCH (08:08)
[2023-01-09] MEDS: MIDODRINE HCL 5 MG TABLET PO SCH ×3 (08:08→20:29)
[2023-01-09 08:13] LABS: BASOPHILS % (AUTO) 0.5 % (0.0-2.0); EOSINOPHILS % (AUTO) 1.4 % (1.0-6.0); HEMOGLOBIN 9.7 g/dL (12.0-16.0); LYMPHOCYTES # (AUTO) 0.6 K/uL (1.0-4.8); LYMPHOCYTES % (AUTO) 5.1 % (22.0-44.0); MEAN CORPUSCULAR HEMOGLOBIN 32.6 pg (26.0-34.0); MEAN CORPUSCULAR HGB CONC 32.3 G/dL (31.0-37.0); MEAN CORPUSCULAR VOLUME 101 fL (80-100); MONOCYTES # (AUTO) 1.2 K/uL (0.1-1.0); MONOCYTES % (AUTO) 10.6 % (2.0-9.0); NEUTROPHILS # (AUTO) 9.3 K/uL (1.8-7.7); NEUTROPHILS % (AUTO) 82.4 % (40.0-70.0); PLATELET COUNT (AUTO) 218 K/uL (150-450); RED BLOOD CELL COUNT(AUTO) 2.98 MIL/uL (4.00-5.20)
[2023-01-09 08:30] LABS: ALBUMIN 2.2 g/dL (3.4-5.0); BILIRUBIN,TOTAL 12.9 mg/dL (0.1-1.0); CALCIUM, TOTAL 8.6 mg/dL (8.8-10.5); CREATININE 7.79 mg/dL (0.60-1.30); POTASSIUM 5.3 mmol/L (3.5-5.1); TOTAL PROTEIN, SERUM 6.3 g/dL (6.4-8.2)
[2023-01-09] MEDS: PANTOPRAZOLE SODIUM 40 MG DR TABLET PO SCH (09:00)
[2023-01-09 09:52] LABS: ABG BASE EXCESS -2.6 mmol/L (-2.0-3.0); ABG CARBOXYHEMOGLOBIN 1.3 % (0.0-1.5); ABG HCO3 22.6 mmol/L (22.0-26.0); ABG METHEMOGLOBIN 0.3 % (0.0-1.5); ABG OXYGEN CONTENT 13.9 mL/dL (15.0-23.0); ABG OXYGEN SATURATION 96.1 % (95.0-98.0); ABG OXYHEMOGLOBIN 94.6 % (94.0-100.0); ABG PCO2 35 mmHg (35-45); ABG PH 7.413 (7.35-7.450); ABG TOTAL HEMOGLOBIN 10.4 G/dL (12.0-18.0); O2 DEVICE,BLOOD GAS ROOM AIR (ROOM AIR); PO2, ARTERIAL BG 83.6 mmHg (79.0-87.0); SITE, BLOOD GAS RT RADIAL; SOURCE, BLOOD GAS ARTERIAL; TEMPERATURE, FAHRENHEIT, BG 98.6 FAHREN (96.0-98.6)
[2023-01-09] MEDS ORDERED: AMIODARONE HCL 750 MG in DEXTROSE 5%-WATER 485 ML IV SCH (14:00)
[2023-01-09] MEDS: MAGNESIUM HYDROXIDE SUSPENSION 30 ML UDCUP PO PRN (14:07)
[2023-01-09] MEDS: DOCUSATE SODIUM 100 MG/10 ML LIQUID UDCUP NG SCH ×2 (14:07→22:35)
[2023-01-09] MEDS ORDERED: SODIUM CHLORIDE 0.9% 1,000 ML ONE (14:09)
[2023-01-09 17:52] LABS: GLUCOSE,POINT OF CARE 73 MG/DL (70-110)
[2023-01-09] MEDS: MEROPENEM 500 MG in SODIUM CHLORIDE 0.9% 50 ML IV SCH (19:01)
[2023-01-09 19:11] LABS: GLUCOSE,POINT OF CARE 75 MG/DL (70-110)
[2023-01-09] MEDS: ATORVASTATIN CALCIUM 10 MG TABLET PO SCH (20:28)
[2023-01-09] MEDS ORDERED: SODIUM CHLORIDE 0.9% 500 ML IV ONE (23:01)
[2023-01-09] MEDS ORDERED: SODIUM CHLORIDE 0.9% 250 ML IV ONE (23:17)
[2023-01-10] VITALS: BP 134/64
[2023-01-10 00:25] LABS: GLUCOSE,POINT OF CARE 81 MG/DL (70-110)
[2023-01-10 04:00] VITALS: BP 122/64
[2023-01-10 05:43] LABS: BASOPHILS % (AUTO) 0.2 % (0.0-2.0); EOSINOPHILS % (AUTO) 1.8 % (1.0-6.0); HEMATOCRIT 29.6 % (36-46); HEMOGLOBIN 9.8 g/dL (12.0-16.0); LYMPHOCYTES # (AUTO) 0.5 K/uL (1.0-4.8); LYMPHOCYTES % (AUTO) 4.8 % (22.0-44.0); MEAN CORPUSCULAR HEMOGLOBIN 32.9 pg (26.0-34.0); MEAN CORPUSCULAR VOLUME 100 fL (80-100); MONOCYTES # (AUTO) 1.1 K/uL (0.1-1.0); MONOCYTES % (AUTO) 9.7 % (2.0-9.0); NEUTROPHILS # (AUTO) 9.2 K/uL (1.8-7.7); NEUTROPHILS % (AUTO) 83.5 % (40.0-70.0); PLATELET COUNT (AUTO) 235 K/uL (150-450); RED BLOOD CELL COUNT(AUTO) 2.97 MIL/uL (4.00-5.20); RED CELL DISTRIBUTION WIDTH 25.8 % (11.5-14.5)
[2023-01-10 05:51] LABS: GLUCOSE,POINT OF CARE 86 MG/DL (70-110)
[2023-01-10 06:00] LABS: BILIRUBIN,TOTAL 13.1 mg/dL (0.1-1.0); CALCIUM, TOTAL 8.1 mg/dL (8.8-10.5); CREATININE 5.08 mg/dL (0.60-1.30); POTASSIUM 4.5 mmol/L (3.5-5.1); TOTAL PROTEIN, SERUM 6.2 g/dL (6.4-8.2); VANCOMYCIN,RANDOM 22.4 mcg/mL (25.0-50.0)
[2023-01-10 08:00] VITALS: BP 143/68
[2023-01-10] MEDS: PANTOPRAZOLE SODIUM 40 MG DR TABLET PO SCH (09:00)
[2023-01-10] MEDS: MIDODRINE HCL 5 MG TABLET PO SCH ×3 (09:50→20:45)
[2023-01-10] MEDS: AMIODARONE HCL 200 MG TABLET NG SCH ×2 (09:50→20:47)
[2023-01-10] MEDS: MAGNESIUM HYDROXIDE SUSPENSION 30 ML UDCUP PO PRN (09:50)
[2023-01-10] MEDS: DOCUSATE SODIUM 100 MG/10 ML LIQUID UDCUP NG SCH ×2 (09:50→20:45)
[2023-01-10] MEDS: ETHYL ALCOHOL 62% ANTISEPTIC NASAL SANITIZER 0.6 ML AMPUL NASAL SCH ×2 (09:50→20:45)
[2023-01-10] MEDS: ONDANSETRON HCL 4 MG/2 ML VIAL IVP PRN (11:31)
[2023-01-10] MEDS ORDERED: MINERAL OIL 133 ML ENEMA PR ONE (12:15)
[2023-01-10] MEDS ORDERED: BISACODYL 10 MG RECTAL RECTAL SUPPOSITORY PR ONE (12:15)
[2023-01-10 12:25] VITALS: BP 125/72
[2023-01-10 13:30] LABS: GLUCOSE,POINT OF CARE 103 MG/DL (70-110)
[2023-01-10 16:33] VITALS: BP 140/71
[2023-01-10] MEDS: MEROPENEM 500 MG in SODIUM CHLORIDE 0.9% 50 ML IV SCH (17:22)
[2023-01-10 20:00] VITALS: BP 116/71
[2023-01-10] MEDS ORDERED: SODIUM CHLORIDE 0.9% 250 ML IV ONE (20:28)
[2023-01-10] MEDS: ATORVASTATIN CALCIUM 10 MG TABLET PO SCH (20:45)
[2023-01-10 23:21] LABS: GLUCOSE,POINT OF CARE 80 MG/DL (70-110)
[2023-01-11] VITALS (12 sets, daily range): BP systolic 126–151; BP diastolic 65–95
[2023-01-11 03:46] LABS: GLUCOSE,POINT OF CARE 74 MG/DL (70-110)
[2023-01-11 06:23] LABS: BILIRUBIN,TOTAL 14.6 mg/dL (0.1-1.0); CALCIUM, TOTAL 8.3 mg/dL (8.8-10.5); CREATININE 5.88 mg/dL (0.60-1.30); POTASSIUM 4.6 mmol/L (3.5-5.1); TOTAL PROTEIN, SERUM 6.1 g/dL (6.4-8.2)
[2023-01-11 07:16] LABS: GLUCOSE,POINT OF CARE 78 MG/DL (70-110)
[2023-01-11] MEDS: AMIODARONE HCL 200 MG TABLET NG SCH ×2 (08:06→21:23)
[2023-01-11] MEDS: DOCUSATE SODIUM 100 MG/10 ML LIQUID UDCUP NG SCH ×2 (08:06→21:23)
[2023-01-11] MEDS: PANTOPRAZOLE SODIUM 40 MG DR TABLET PO SCH (08:06)
[2023-01-11] MEDS: MIDODRINE HCL 5 MG TABLET PO SCH ×3 (08:07→21:23)
[2023-01-11] MEDS: EPOETIN ALFA 10,000 UNITS/ML 2 ML VIAL SQ SCH (08:07)
[2023-01-11] MEDS: ETHYL ALCOHOL 62% ANTISEPTIC NASAL SANITIZER 0.6 ML AMPUL NASAL SCH ×2 (08:07→21:23)
[2023-01-11] MEDS ORDERED: SODIUM CHLORIDE 0.9% 2,000 ML ONE (12:17)
[2023-01-11 13:56] LABS: GLUCOSE,POINT OF CARE 78 MG/DL (70-110)
[2023-01-11] MEDS: METOCLOPRAMIDE HCL 5 MG TABLET PO SCH (16:36)
[2023-01-11] MEDS ORDERED: VANCOMYCIN 1GM/WATER(PEG/NADA) 200 ML IV ONE (18:00)
[2023-01-11 20:21] LABS: GLUCOSE,POINT OF CARE 71 MG/DL (70-110)
[2023-01-11] MEDS: MEROPENEM 500 MG in SODIUM CHLORIDE 0.9% 50 ML IV SCH (21:22)
[2023-01-11] MEDS: ATORVASTATIN CALCIUM 10 MG TABLET PO SCH (21:23)
[2023-01-12] MEDS: METOCLOPRAMIDE HCL 5 MG TABLET PO SCH ×2 (01:00→08:43)
[2023-01-12] MEDS: DEXTROSE 50%-WATER 25 GM/50 ML SYRINGE IVP PRN (02:05)
[2023-01-12 04:07] VITALS: BP 129/71
[2023-01-12 06:52] LABS: GLUCOMETER DEV NAME(LOC) 5S.1B; GLUCOSE,POINT OF CARE 70 MG/DL (70-110)
[2023-01-12 06:52] LABS: GLUCOMETER DEV NAME(LOC) 5S.1B; GLUCOSE,POINT OF CARE 66 MG/DL (70-110)
[2023-01-12 07:25] VITALS: BP 125/86
[2023-01-12 07:46] LABS: BASOPHILS % (AUTO) 0.3 % (0.0-2.0); EOSINOPHILS % (AUTO) 2.3 % (1.0-6.0); HEMATOCRIT 31.7 % (36-46); HEMOGLOBIN 10.3 g/dL (12.0-16.0); LYMPHOCYTES # (AUTO) 0.5 K/uL (1.0-4.8); LYMPHOCYTES % (AUTO) 3.9 % (22.0-44.0); MEAN CORPUSCULAR HEMOGLOBIN 32.6 pg (26.0-34.0); MEAN CORPUSCULAR HGB CONC 32.6 G/dL (31.0-37.0); MEAN CORPUSCULAR VOLUME 100 fL (80-100); MONOCYTES % (AUTO) 8.6 % (2.0-9.0); NEUTROPHILS # (AUTO) 10.4 K/uL (1.8-7.7); NEUTROPHILS % (AUTO) 84.9 % (40.0-70.0); PLATELET COUNT (AUTO) 203 K/uL (150-450); RED BLOOD CELL COUNT(AUTO) 3.16 MIL/uL (4.00-5.20)
[2023-01-12 08:10] LABS: ALBUMIN 1.9 g/dL (3.4-5.0); BILIRUBIN,DIRECT 11.6 mg/dL (0.00-0.20); BILIRUBIN,TOTAL 15.5 mg/dL (0.1-1.0); CALCIUM, TOTAL 8.5 mg/dL (8.8-10.5); CREATININE 5.07 mg/dL (0.60-1.30); POTASSIUM 4.4 mmol/L (3.5-5.1)
[2023-01-12] MEDS: ETHYL ALCOHOL 62% ANTISEPTIC NASAL SANITIZER 0.6 ML AMPUL NASAL SCH ×2 (08:43→20:45)
[2023-01-12] MEDS: AMIODARONE HCL 200 MG TABLET NG SCH ×3 (08:43→23:29)
[2023-01-12] MEDS: DOCUSATE SODIUM 100 MG/10 ML LIQUID UDCUP NG SCH ×3 (08:44→23:29)
[2023-01-12] MEDS: MIDODRINE HCL 5 MG TABLET PO SCH (10:27)
[2023-01-12] MEDS: PANTOPRAZOLE SODIUM 40 MG/VIAL IVP SCH (10:29)
[2023-01-12 11:59] VITALS: BP 140/71
[2023-01-12 12:37] LABS: GLUCOMETER DEV NAME(LOC) 5S.1B; GLUCOSE,POINT OF CARE 76 MG/DL (70-110)
[2023-01-12] MEDS ORDERED: MIDODRINE HCL 5 MG TABLET PO PRN (16:00)
[2023-01-12 16:25] VITALS: BP 131/68
[2023-01-12] MEDS: METOCLOPRAMIDE HCL 10 MG/10 ML SOLUTION ORAL.SYG PO SCH ×2 (16:28→23:34)
[2023-01-12] MEDS: MEROPENEM 500 MG in SODIUM CHLORIDE 0.9% 50 ML IV SCH (17:40)
[2023-01-12 19:29] VITALS: BP 108/57
[2023-01-12] MEDS: ATORVASTATIN CALCIUM 10 MG TABLET PO SCH ×2 (20:45→23:29)
[2023-01-12] MEDS: HYDROCODONE/ACETAMINOPHEN 5-325 MG TABLET PO PRN (23:29)
[2023-01-13 00:34] VITALS: BP 93/53
[2023-01-13 01:27] LABS: GLUCOMETER DEV NAME(LOC) 5S.1B; GLUCOSE,POINT OF CARE 71 MG/DL (70-110)
[2023-01-13 01:27] LABS: GLUCOMETER DEV NAME(LOC) 5S.1B; GLUCOSE,POINT OF CARE 90 MG/DL (70-110)
[2023-01-13] MEDS: DEXTROSE 50%-WATER 25 GM/50 ML SYRINGE IVP PRN (02:20)
[2023-01-13 02:41] LABS: GLUCOMETER DEV NAME(LOC) 5N.1C; GLUCOSE,POINT OF CARE 66 MG/DL (70-110)
[2023-01-13 04:20] VITALS: BP 116/88
[2023-01-13 06:01] LABS: GLUCOMETER DEV NAME(LOC) 5N.1C; GLUCOSE,POINT OF CARE 80 MG/DL (70-110)
[2023-01-13 06:45] LABS: BASOPHILS % (AUTO) 0.9 % (0.0-2.0); EOSINOPHILS % (AUTO) 2.8 % (1.0-6.0); HEMATOCRIT 32.6 % (36-46); HEMOGLOBIN 10.9 g/dL (12.0-16.0); LYMPHOCYTES # (AUTO) 0.5 K/uL (1.0-4.8); LYMPHOCYTES % (AUTO) 5.4 % (22.0-44.0); MEAN CORPUSCULAR HEMOGLOBIN 33.6 pg (26.0-34.0); MEAN CORPUSCULAR HGB CONC 33.4 G/dL (31.0-37.0); MEAN CORPUSCULAR VOLUME 101 fL (80-100); MONOCYTES # (AUTO) 1.1 K/uL (0.1-1.0); MONOCYTES % (AUTO) 10.7 % (2.0-9.0); NEUTROPHILS % (AUTO) 80.2 % (40.0-70.0); PLATELET COUNT (AUTO) 182 K/uL (150-450); RED BLOOD CELL COUNT(AUTO) 3.24 MIL/uL (4.00-5.20); RED CELL DISTRIBUTION WIDTH 26.2 % (11.5-14.5)
[2023-01-13 07:02] LABS: ALBUMIN 1.8 g/dL (3.4-5.0); BILIRUBIN,DIRECT 11.9 mg/dL (0.00-0.20); BILIRUBIN,TOTAL 15.2 mg/dL (0.1-1.0); CALCIUM, TOTAL 8.3 mg/dL (8.8-10.5); CREATININE 6.12 mg/dL (0.60-1.30); POTASSIUM 4.2 mmol/L (3.5-5.1); TOTAL PROTEIN, SERUM 5.7 g/dL (6.4-8.2)
[2023-01-13 07:27] VITALS: BP 131/55
[2023-01-13] MEDS: PANTOPRAZOLE SODIUM 40 MG/VIAL IVP SCH (10:19)
[2023-01-13] MEDS: METOCLOPRAMIDE HCL 10 MG/10 ML SOLUTION ORAL.SYG PO SCH ×3 (10:20→23:32)
[2023-01-13] MEDS: AMIODARONE HCL 200 MG TABLET NG SCH ×2 (10:20→21:06)
[2023-01-13] MEDS: DOCUSATE SODIUM 100 MG/10 ML LIQUID UDCUP NG SCH ×2 (10:20→21:06)
[2023-01-13] MEDS: ETHYL ALCOHOL 62% ANTISEPTIC NASAL SANITIZER 0.6 ML AMPUL NASAL SCH ×2 (10:20→21:17)
[2023-01-13 12:00] VITALS: BP 122/69
[2023-01-13 15:48] VITALS: BP 129/48
[2023-01-13 19:55] VITALS: BP 118/54
[2023-01-13] MEDS: ATORVASTATIN CALCIUM 10 MG TABLET PO SCH (21:14)
[2023-01-13] MEDS: HYDROCODONE/ACETAMINOPHEN 5-325 MG TABLET PO PRN (23:32)
[2023-01-14] VITALS (14 sets, daily range): BP systolic 105–139; BP diastolic 43–82
[2023-01-14 02:36] LABS: GLUCOMETER DEV NAME(LOC) 5N.1C; GLUCOSE,POINT OF CARE 88 MG/DL (70-110)
[2023-01-14 02:36] LABS: GLUCOMETER DEV NAME(LOC) 5N.1C; GLUCOSE,POINT OF CARE 89 MG/DL (70-110)
[2023-01-14 02:36] LABS: GLUCOMETER DEV NAME(LOC) 5N.1C; GLUCOSE,POINT OF CARE 86 MG/DL (70-110)
[2023-01-14 07:14] LABS: BASOPHILS % (AUTO) 0.4 % (0.0-2.0); HEMATOCRIT 29.4 % (36-46); HEMOGLOBIN 9.7 g/dL (12.0-16.0); LYMPHOCYTES # (AUTO) 0.7 K/uL (1.0-4.8); LYMPHOCYTES % (AUTO) 6.2 % (22.0-44.0); MEAN CORPUSCULAR HEMOGLOBIN 33.2 pg (26.0-34.0); MEAN CORPUSCULAR VOLUME 101 fL (80-100); MONOCYTES # (AUTO) 1.2 K/uL (0.1-1.0); MONOCYTES % (AUTO) 10.5 % (2.0-9.0); NEUTROPHILS % (AUTO) 79.9 % (40.0-70.0); PLATELET COUNT (AUTO) 189 K/uL (150-450); RED BLOOD CELL COUNT(AUTO) 2.92 MIL/uL (4.00-5.20); RED CELL DISTRIBUTION WIDTH 25.5 % (11.5-14.5)
[2023-01-14 07:44] LABS: ALBUMIN 1.8 g/dL (3.4-5.0); CALCIUM, TOTAL 8.5 mg/dL (8.8-10.5); CREATININE 6.98 mg/dL (0.60-1.30); POTASSIUM 4.4 mmol/L (3.5-5.1); TOTAL PROTEIN, SERUM 5.9 g/dL (6.4-8.2)
[2023-01-14] MEDS: METOCLOPRAMIDE HCL 10 MG/10 ML SOLUTION ORAL.SYG PO SCH ×3 (09:08→23:56)
[2023-01-14] MEDS: EPOETIN ALFA 10,000 UNITS/ML 2 ML VIAL SQ SCH (09:08)
[2023-01-14] MEDS: PANTOPRAZOLE SODIUM 40 MG/VIAL IVP SCH (09:08)
[2023-01-14] MEDS: AMIODARONE HCL 200 MG TABLET NG SCH ×2 (09:08→21:34)
[2023-01-14] MEDS: ETHYL ALCOHOL 62% ANTISEPTIC NASAL SANITIZER 0.6 ML AMPUL NASAL SCH ×2 (09:09→21:34)
[2023-01-14] MEDS: DOCUSATE SODIUM 100 MG/10 ML LIQUID UDCUP NG SCH ×2 (09:09→21:33)
[2023-01-14 12:31] LABS: GLUCOMETER DEV NAME(LOC) 5N.1C; GLUCOSE,POINT OF CARE 72 MG/DL (70-110)
[2023-01-14] MEDS: ATORVASTATIN CALCIUM 10 MG TABLET PO SCH (21:34)
[2023-01-14] MEDS: HYDROCODONE/ACETAMINOPHEN 5-325 MG TABLET PO PRN (21:34)
[2023-01-15 01:38] VITALS: BP 101/52
[2023-01-15] MEDS: HYDROCODONE/ACETAMINOPHEN 5-325 MG TABLET PO PRN ×2 (04:39→21:29)
[2023-01-15 06:16] LABS: GLUCOMETER DEV NAME(LOC) 5S.1B; GLUCOSE,POINT OF CARE 92 MG/DL (70-110)
[2023-01-15 06:16] LABS: GLUCOMETER DEV NAME(LOC) 5S.1B; GLUCOSE,POINT OF CARE 91 MG/DL (70-110)
[2023-01-15 06:45] VITALS: BP 103/55
[2023-01-15 07:19] LABS: EOSINOPHILS % (AUTO) 2.9 % (1.0-6.0); HEMATOCRIT 30.7 % (36-46); HEMOGLOBIN 10.2 g/dL (12.0-16.0); LYMPHOCYTES # (AUTO) 0.6 K/uL (1.0-4.8); MEAN CORPUSCULAR HEMOGLOBIN 33.5 pg (26.0-34.0); MEAN CORPUSCULAR HGB CONC 33.3 G/dL (31.0-37.0); MEAN CORPUSCULAR VOLUME 101 fL (80-100); MONOCYTES # (AUTO) 1.2 K/uL (0.1-1.0); MONOCYTES % (AUTO) 11.3 % (2.0-9.0); NEUTROPHILS # (AUTO) 8.2 K/uL (1.8-7.7); NEUTROPHILS % (AUTO) 78.8 % (40.0-70.0); PLATELET COUNT (AUTO) 164 K/uL (150-450); RED BLOOD CELL COUNT(AUTO) 3.05 MIL/uL (4.00-5.20); RED CELL DISTRIBUTION WIDTH 25.4 % (11.5-14.5)
[2023-01-15 07:37] VITALS: BP 90/56
[2023-01-15 07:41] LABS: ALBUMIN 1.7 g/dL (3.4-5.0); BILIRUBIN,DIRECT 12.5 mg/dL (0.00-0.20); CALCIUM, TOTAL 8.4 mg/dL (8.8-10.5); CREATININE 5.5 mg/dL (0.60-1.30); TOTAL PROTEIN, SERUM 5.7 g/dL (6.4-8.2)
[2023-01-15] MEDS: METOCLOPRAMIDE HCL 10 MG/10 ML SOLUTION ORAL.SYG PO SCH ×2 (09:28→16:42)
[2023-01-15] MEDS: PANTOPRAZOLE SODIUM 40 MG/VIAL IVP SCH (09:29)
[2023-01-15] MEDS: DOCUSATE SODIUM 100 MG/10 ML LIQUID UDCUP NG SCH ×2 (09:29→21:30)
[2023-01-15] MEDS: AMIODARONE HCL 200 MG TABLET NG SCH ×2 (09:29→21:29)
[2023-01-15] MEDS: ETHYL ALCOHOL 62% ANTISEPTIC NASAL SANITIZER 0.6 ML AMPUL NASAL SCH ×2 (09:31→21:39)
[2023-01-15 11:14] VITALS: BP 112/63
[2023-01-15 14:59] VITALS: BP 100/55
[2023-01-15 20:17] VITALS: BP 114/57
[2023-01-15] MEDS: ATORVASTATIN CALCIUM 10 MG TABLET PO SCH (21:30)
[2023-01-16] VITALS (12 sets, daily range): BP systolic 95–130; BP diastolic 43–69
[2023-01-16] MEDS: METOCLOPRAMIDE HCL 10 MG/10 ML SOLUTION ORAL.SYG PO SCH ×4 (00:31→23:52)
[2023-01-16] MEDS: HYDROCODONE/ACETAMINOPHEN 5-325 MG TABLET PO PRN ×3 (01:34→13:08)
[2023-01-16 02:36] LABS: GLUCOMETER DEV NAME(LOC) 5N.1C; GLUCOSE,POINT OF CARE 108 MG/DL (70-110)
[2023-01-16 02:40] LABS: GLUCOMETER DEV NAME(LOC) 5N.1C; GLUCOSE,POINT OF CARE 72 MG/DL (70-110)
[2023-01-16 02:40] LABS: GLUCOMETER DEV NAME(LOC) 5N.1C; GLUCOSE,POINT OF CARE 75 MG/DL (70-110)
[2023-01-16 02:40] LABS: GLUCOMETER DEV NAME(LOC) 5N.1C; GLUCOSE,POINT OF CARE 72 MG/DL (70-110)
[2023-01-16 02:40] LABS: GLUCOMETER DEV NAME(LOC) 5N.1C; GLUCOSE,POINT OF CARE 55 MG/DL (70-110)
[2023-01-16 06:33] LABS: BASOPHILS % (AUTO) 0.6 % (0.0-2.0); HEMATOCRIT 30.6 % (36-46); HEMOGLOBIN 10.1 g/dL (12.0-16.0); LYMPHOCYTES # (AUTO) 0.7 K/uL (1.0-4.8); LYMPHOCYTES % (AUTO) 6.6 % (22.0-44.0); MEAN CORPUSCULAR HEMOGLOBIN 33.7 pg (26.0-34.0); MEAN CORPUSCULAR VOLUME 102 fL (80-100); MONOCYTES # (AUTO) 1.4 K/uL (0.1-1.0); MONOCYTES % (AUTO) 13.4 % (2.0-9.0); NEUTROPHILS % (AUTO) 76.4 % (40.0-70.0); PLATELET COUNT (AUTO) 161 K/uL (150-450); RED CELL DISTRIBUTION WIDTH 25.6 % (11.5-14.5)
[2023-01-16 07:15] LABS: ALBUMIN 1.8 g/dL (3.4-5.0); BILIRUBIN,TOTAL 17.1 mg/dL (0.1-1.0); CALCIUM, TOTAL 8.4 mg/dL (8.8-10.5); CREATININE 6.58 mg/dL (0.60-1.30); POTASSIUM 4.5 mmol/L (3.5-5.1); TOTAL PROTEIN, SERUM 5.7 g/dL (6.4-8.2)
[2023-01-16 08:06] LABS: GLUCOMETER DEV NAME(LOC) 5S.1B; GLUCOSE,POINT OF CARE 62 MG/DL (70-110)
[2023-01-16 08:06] LABS: GLUCOMETER DEV NAME(LOC) 5S.1B; GLUCOSE,POINT OF CARE 67 MG/DL (70-110)
[2023-01-16 08:07] LABS: GLUCOMETER DEV NAME(LOC) 5S.1B; GLUCOSE,POINT OF CARE 89 MG/DL (70-110)
[2023-01-16] MEDS: PANTOPRAZOLE SODIUM 40 MG/VIAL IVP SCH (09:00)
[2023-01-16] MEDS: MICONAZOLE NITRATE 2% 142 GM CREAM [BAZA] TP SCH ×2 (09:30→23:53)
[2023-01-16] MEDS: ETHYL ALCOHOL 62% ANTISEPTIC NASAL SANITIZER 0.6 ML AMPUL NASAL SCH ×2 (10:15→23:54)
[2023-01-16] MEDS: DOCUSATE SODIUM 100 MG/10 ML LIQUID UDCUP NG SCH ×2 (10:16→23:52)
[2023-01-16] MEDS: EPOETIN ALFA 10,000 UNITS/ML 2 ML VIAL SQ SCH (10:17)
[2023-01-16] MEDS: AMIODARONE HCL 200 MG TABLET NG SCH ×2 (10:17→23:53)
[2023-01-16] MEDS: ACETAMINOPHEN 325 MG TABLET PO PRN (13:13)
[2023-01-16 21:26] LABS: GLUCOMETER DEV NAME(LOC) 5N.2C; GLUCOSE,POINT OF CARE 73 MG/DL (70-110)
[2023-01-16 21:26] LABS: GLUCOMETER DEV NAME(LOC) 5N.2C; GLUCOSE,POINT OF CARE 74 MG/DL (70-110)
[2023-01-16] MEDS: ATORVASTATIN CALCIUM 10 MG TABLET PO SCH (23:53)
[2023-01-17] VITALS: BP 125/66
[2023-01-17 00:06] LABS: GLUCOMETER DEV NAME(LOC) 5S.1B; GLUCOSE,POINT OF CARE 55 MG/DL (70-110)
[2023-01-17] MEDS: HYDROCODONE/ACETAMINOPHEN 5-325 MG TABLET PO PRN (04:32)
[2023-01-17 05:55] VITALS: BP 123/68
[2023-01-17] MEDS: DEXTROSE 40% LEMON 37.5 GM/TUBE GEL [15 GM GLUCOSE] PO PRN ×2 (06:28)
[2023-01-17] MEDS ORDERED: AMIO200T68 PO (06:52)
[2023-01-17] MEDS ORDERED: ATOR10TA PO (06:53)
[2023-01-17] MEDS ORDERED: METO5TAB95 PO (06:54)
[2023-01-17] MEDS ORDERED: MICO57CR2 TP (06:54)
[2023-01-17] MEDS ORDERED: PANT-31 PO (06:55)
[2023-01-17] MEDS ORDERED: MIDO5TAB29 PO (06:55)
[2023-01-17 08:00] VITALS: BP 113/79
[2023-01-17] MEDS: DOCUSATE SODIUM 100 MG/10 ML LIQUID UDCUP NG SCH (08:58)
[2023-01-17] MEDS: AMIODARONE HCL 200 MG TABLET NG SCH (08:59)
[2023-01-17] MEDS: ETHYL ALCOHOL 62% ANTISEPTIC NASAL SANITIZER 0.6 ML AMPUL NASAL SCH (08:59)
[2023-01-17] MEDS: PANTOPRAZOLE SODIUM 40 MG/VIAL IVP SCH (08:59)
[2023-01-17] MEDS: METOCLOPRAMIDE HCL 10 MG/10 ML SOLUTION ORAL.SYG PO SCH (08:59)
[2023-01-17] MEDS: MICONAZOLE NITRATE 2% 142 GM CREAM [BAZA] TP SCH (09:00)
[2023-01-17 20:16] LABS: GLUCOMETER DEV NAME(LOC) 5N.2C; GLUCOSE,POINT OF CARE 74 MG/DL (70-110)
[2023-01-17 20:16] LABS: GLUCOMETER DEV NAME(LOC) 5S.1B; GLUCOSE,POINT OF CARE 57 MG/DL (70-110)
[2023-08-02] MEDS ORDERED: HEPARIN SODIUM,PORCINE 1,000 UNITS/ML VIAL IVP ONE (12:00)
[2023-08-02] MEDS ORDERED: MANNITOL 25%-12.5 GM/50 ML VIAL IVP ONE (12:00)
== END 2023-01-17 12:30 | DRG 720 ==
LOC: EMS 17:49 → ICU 19:48 → 5S 12-29 00:50 → ICU 12-31 18:35 → 5N 01-11 22:42
PROVIDERS: ADMIT Internal Medicine; ATTEND Internal Medicine
PROC: 5A1D70Z Performance of Urinary Filtration, Intermittent, Less than 6 Hours Per Day (ICD-10-PCS; 2022-12-26)
PROC: 5A1D70Z Performance of Urinary Filtration, Intermittent, Less than 6 Hours Per Day (ICD-10-PCS; 2022-12-28)
PROC: 05HB33Z Insertion of Infusion Device into Right Basilic Vein, Percutaneous Approach (ICD-10-PCS; 2022-12-30)
PROC: 5A1945Z Respiratory Ventilation, 24-96 Consecutive Hours (ICD-10-PCS; principal; 2022-12-31)
PROC: 0BH17EZ Insertion of Endotracheal Airway into Trachea, Via Natural or Artificial Opening (ICD-10-PCS; 2022-12-31)
PROC: 5A1D70Z Performance of Urinary Filtration, Intermittent, Less than 6 Hours Per Day (ICD-10-PCS; 2022-12-31)
PROC: 30233N1 Transfusion of Nonautologous Red Blood Cells into Peripheral Vein, Percutaneous Approach (ICD-10-PCS; 2022-12-31)
PROC: 30233M1 Transfusion of Nonautologous Plasma Cryoprecipitate into Peripheral Vein, Percutaneous Approach (ICD-10-PCS; 2023-01-01)
PROC: 5A1D70Z Performance of Urinary Filtration, Intermittent, Less than 6 Hours Per Day (ICD-10-PCS; 2023-01-02)
PROC: 5A09357 Assistance with Respiratory Ventilation, Less than 24 Consecutive Hours, Continuous Positive Airway Pressure (ICD-10-PCS; 2023-01-04)
PROC: 5A1D70Z Performance of Urinary Filtration, Intermittent, Less than 6 Hours Per Day (ICD-10-PCS; 2023-01-04)
PROC: 5A09357 Assistance with Respiratory Ventilation, Less than 24 Consecutive Hours, Continuous Positive Airway Pressure (ICD-10-PCS; 2023-01-05)
PROC: 5A09357 Assistance with Respiratory Ventilation, Less than 24 Consecutive Hours, Continuous Positive Airway Pressure (ICD-10-PCS; 2023-01-06)
PROC: 5A09357 Assistance with Respiratory Ventilation, Less than 24 Consecutive Hours, Continuous Positive Airway Pressure (ICD-10-PCS; 2023-01-07)
PROC: 5A1D70Z Performance of Urinary Filtration, Intermittent, Less than 6 Hours Per Day (ICD-10-PCS; 2023-01-07)
PROC: 5A09357 Assistance with Respiratory Ventilation, Less than 24 Consecutive Hours, Continuous Positive Airway Pressure (ICD-10-PCS; 2023-01-08)
PROC: 5A1D70Z Performance of Urinary Filtration, Intermittent, Less than 6 Hours Per Day (ICD-10-PCS; 2023-01-09)
PROC: 5A09357 Assistance with Respiratory Ventilation, Less than 24 Consecutive Hours, Continuous Positive Airway Pressure (ICD-10-PCS; 2023-01-09)
PROC: 05HD33Z Insertion of Infusion Device into Right Cephalic Vein, Percutaneous Approach (ICD-10-PCS; 2023-01-09)
PROC: 5A1935Z Respiratory Ventilation, Less than 24 Consecutive Hours (ICD-10-PCS; 2023-01-10)
PROC: 5A1D70Z Performance of Urinary Filtration, Intermittent, Less than 6 Hours Per Day (ICD-10-PCS; 2023-01-11)
PROC: 5A1D70Z Performance of Urinary Filtration, Intermittent, Less than 6 Hours Per Day (ICD-10-PCS; 2023-01-14)
PROC: 5A1D70Z Performance of Urinary Filtration, Intermittent, Less than 6 Hours Per Day (ICD-10-PCS; 2023-01-16)
DX: A41.1 Sepsis due to other specified staphylococcus (principal); J96.00 Acute respiratory failure, unspecified whether with hypoxia or hypercapnia; R57.8 Other shock; G93.41 Metabolic encephalopathy; K66.1 Hemoperitoneum; I13.2 Hypertensive heart and chronic kidney disease with heart failure and with stage 5 chronic kidney disease, or end stage renal disease; J15.5 Pneumonia due to Escherichia coli; N18.6 End stage renal disease; Z68.36 Body mass index [BMI] 36.0-36.9, adult; Z20.822 Contact with and (suspected) exposure to COVID-19; D69.6 Thrombocytopenia, unspecified; E87.1 Hypo-osmolality and hyponatremia; D63.8 Anemia in other chronic diseases classified elsewhere; I50.30 Unspecified diastolic (congestive) heart failure; E11.22 Type 2 diabetes mellitus with diabetic chronic kidney disease; R65.20 Severe sepsis without septic shock; I48.0 Paroxysmal atrial fibrillation; E87.6 Hypokalemia; E66.9 Obesity, unspecified; E87.5 Hyperkalemia; I25.10 Atherosclerotic heart disease of native coronary artery without angina pectoris; D50.0 Iron deficiency anemia secondary to blood loss (chronic); I21.A1 Myocardial infarction type 2; I48.92 Unspecified atrial flutter; E78.5 Hyperlipidemia, unspecified; J45.909 Unspecified asthma, uncomplicated; I25.5 Ischemic cardiomyopathy; L30.9 Dermatitis, unspecified; N39.0 Urinary tract infection, site not specified; Z16.12 Extended spectrum beta lactamase (ESBL) resistance; R18.8 Other ascites; K82.8 Other specified diseases of gallbladder; I34.0 Nonrheumatic mitral (valve) insufficiency; L98.429 Non-pressure chronic ulcer of back with unspecified severity; E80.6 Other disorders of bilirubin metabolism; K72.90 Hepatic failure, unspecified without coma; Z16.24 Resistance to multiple antibiotics; Z79.899 Other long term (current) drug therapy; Z99.2 Dependence on renal dialysis; Z86.73 Personal history of transient ischemic attack (TIA), and cerebral infarction without residual deficits; I25.2 Old myocardial infarction; Z82.49 Family history of ischemic heart disease and other diseases of the circulatory system; Z82.5 Family history of asthma and other chronic lower respiratory diseases; Z83.3 Family history of diabetes mellitus
CPT/HCPCS: 36245; 36569; 36600; 51701; 70450; 71045; 71275; 74018; 74177; 74181; 76700; 76937; 80048; 80053; 80061; 80076; 80202; 81001; 81002; 82140; 82247; 82248; 82271; 82805; 82962; 83540; 83550; 83605; 83690; 83735; 83880; 84100; 84132; 84484; 85014; 85018; 85025; 85045; 85379; 85610; 85730; 86850; 86900; 86901; 86923; 86927; 87040; 87070; 87077; 87081; 87086; 87186; 87205; 87340; 90935; 92523; 92526; 92610; 93005; 93306; 94002; 94003; 94660; 97112; 97163; 97167; 97530; 97535; 99291; C9113; G0238; G0378; J0282; J0610; J0692; J0696; J0885; J1160; J1200; J1580; J1630; J1644; J2150; J2185; J2270; J2370; J2405; J2704; J3370; J3490; J7030; J7040; J7050; J7060; P9016; P9046; Q9967; 36415-L1; 36415-TC